=== PATIENT | male | born 1935 | race Caucasian/White ===

== ENCOUNTER → 2016-05-12 | Outpatient (CLI) | payer OTHER ==
[2016-05-12 12:21] LABS: BASO % 0.2 %; BASO ABS # 0.02 K/uL (0-0.2); COMPLETE YES; EOS % 2.5 %; HEMATOCRIT 39.5 % (42-52); IG% 0.1 %; LYMPH % 16.7 %; MEAN CELL VOLUME 94.5 fL (80-100); MEAN CORPUSCULAR HEMOGLOBIN 32.3 pg (25-34); MEAN CORPUSCULAR HGB CONC 34.2 g/dl (32-36); MEAN PLATELET VOLUME 10.2 fL (7.4-10.4); MONO % 6.5 %; PLATELET COUNT 239 K/uL (130-400); RED BLOOD COUNT 4.18 M/uL (4.7-6.1)
[2016-05-12 12:30] LABS: ALT/SGPT 27 U/L (12-78); BLOOD UREA NITROGEN 20 mg/dl (7-18); BUN/CREATININE RATIO 16.3 (10-20); CALCIUM 9.2 mg/dl (8.5-10.1); CARBON DIOXIDE 28 mmol/L (21-32); CHLORIDE 105 mmol/L (98-107); CHOLESTEROL 216 mg/dl (0-200); GLUCOSE 98 mg/dl (70-99); POTASSIUM 4.1 mmol/L (3.5-5.1); SODIUM 142 mmol/L (136-145)
[2016-05-12 12:37] LABS: ALB/GLOB RATIO 1.3 (0.9-2); ALKALINE PHOSPHATASE 93 U/L (45-117); AST/SGOT 25 U/L (15-37); CHOLESTEROL/HDL RATIO 3.3; HDL CHOLESTEROL 66 mg/dl; LDL CHOLESTEROL CALCULATED 139 mg/dl; PROSTATE SPECIFIC ANTIGEN 0.584 ng/ml (0.000-4.000); TRIGLYCERIDES 55 mg/dl (0-150); VERY LOW DENSITY LIPOPROT CALC 11 mg/dl
[2016-05-12 13:03] LABS: ESTIMATED AVERAGE GLUCOSE 120 mg/dl; HA1C FLAG Normal (Normal)
== END | disposition home or self-care (01) ==
LOC: C.LABBFT 10:52
PROVIDERS: ATTEND Internal Medicine
DX: E78.5 Hyperlipidemia, unspecified (principal); R73.01 Impaired fasting glucose; Z12.5 Encounter for screening for malignant neoplasm of prostate

== ENCOUNTER → 2017-07-20 | Outpatient (CLI) | payer OTHER ==
[2017-07-20 12:09] LABS: BASO % 0.5 %; BASO ABS # 0.03 K/uL (0-0.2); EOS % 4.7 %; HEMATOCRIT 38.4 % (42-52); LYMPH % 22.5 %; LYMPH ABS # 1.44 K/uL (1.2-3.4); MEAN CELL VOLUME 96.5 fL (80-100); MEAN CORPUSCULAR HEMOGLOBIN 32.7 pg (25-34); MEAN CORPUSCULAR HGB CONC 33.9 g/dl (32-36); MEAN PLATELET VOLUME 10.4 fL (7.4-10.4); MONO % 9.4 %; NEUT % 62.9 %; NEUT ABS # 4.04 K/uL (1.4-6.5); PLATELET COUNT 226 K/uL (130-400); RED CELL DISTRIBUTION WIDTH SD 45.4 fL (36.4-46.3); WHITE BLOOD COUNT 6.41 K/uL (4.8-10.8)
[2017-07-20 12:19] LABS: HEMOGLOBIN A1C 5.8 % (4.5-5.6)
[2017-07-20 12:42] LABS: ALBUMIN 3.8 gm/dl (3.4-5.0); ALT/SGPT 24 U/L (12-78); AST/SGOT 20 U/L (15-37); BLOOD UREA NITROGEN 21 mg/dl (7-18); CALCIUM 8.9 mg/dl (8.5-10.1); CARBON DIOXIDE 26 mmol/L (21-32); CREATININE 1.26 mg/dl (0.60-1.40); GLUCOSE 100 mg/dl (70-99); POTASSIUM 4.7 mmol/L (3.5-5.1); SODIUM 138 mmol/L (136-145)
[2017-07-20 12:47] LABS: ALKALINE PHOSPHATASE 89 U/L (45-117); CHOLESTEROL 180 mg/dl (0-200); LDL CHOLESTEROL CALCULATED 107 mg/dl; TOTAL PROTEIN 7.2 gm/dl (6.4-8.2)
== END | disposition home or self-care (01) ==
LOC: C.LABBFT 09:29
PROVIDERS: ATTEND Internal Medicine
DX: R73.01 Impaired fasting glucose (principal); Z12.5 Encounter for screening for malignant neoplasm of prostate; E78.5 Hyperlipidemia, unspecified; I65.29 Occlusion and stenosis of unspecified carotid artery

== ENCOUNTER 2021-04-05 08:35 | Observation (INO) ==
--- NOTE | 2021-04-05 08:43 | Emergency Department Note ---
Impression & Plan Atrial fibrillation with rapid ventricular response, Anemia ED Provider Note NAME: LUDA DANIELS AGE: 85 SEX: M : 1935 ARRIVES VIA: Ambulance INFORMANT: Patient, ED PROVIDER(S): Thomas Dockery MD Chief Complaint: Irregular heartbeat, outpatient referral HPI: The patient was over the surgical center this morning for a likely cataract replacement procedure when the patient was noted to have a preoperative EKG that showed A. fib. Patient states he has no chest pain or shortness of breath. Patient denies any alcohol tobacco or drug use. No prior history of any heart or lung disease. Patient is not vaccinated for Covid or flu. Patient denies any chest pain shortness of breath or lower extremity swelling. Patient denies any abdominal pain nausea vomiting. Patient has any fevers or chills back pain or chest pain. Patient has had no prior history of irregular heartbeat. Patient denies any palpitations. No history of thyroid disease. ROS: See HPI for pertinent positives and negatives. A total of 10 systems were reviewed and otherwise negative. Past medical history: See below Surgical history: See below Social history: See below Physical Exam: GENERAL: NAD, wearing glasses, wearing a mask, non-toxic. EYE EXAM: Normal conjunctiva. Left greater than right anisocoria. NECK: Supple, no nuchal rigidity, no adenopathy, non-tender. No signs of meningismus. LUNGS: Clear to auscultation. Normal chest wall mechanics. HEART: Tachycardic, irregularly irregular, no MRG. ABDOMEN: Abdomen soft, non-tender, normo-active bowel sounds, no masses, no rebound or guarding. BACK: No CVA TTP. SKIN: No rashes and no bruising. UPPER EXTREMITIES: Upper extremities are grossly normal. LOWER EXTREMITIES: Grossly normal, no edema. NEURO EXAM: A&O x3, cranial nerves II-XII grossly intact, normal speech, moves all 4 extremities on command w/o issue. Differential diagnoses: Premature contractions, electrolyte abnormality, cardiac dysrhythmia, thyroid dysfunction, pulmonary embolism, infection, gastrointestinal, as well as other pathologies. Course: Patient was seen and evaluated the bedside. Full history physical exam was performed. EKG interpreted by me Likely A. fib with RVR, ventricular rate 169, left bundle branch block, left axis deviation, no prior EKGs for comparison. Imaging Studies: See Below Cardiac monitoring: An order was placed for continuous cardiac monitoring. The monitor shows a rate of 152 with irregular irregular rhythm. MDM: Patient did present due to concern for A. fib with RVR. Patient did have blood work completed and was given Cardizem and IV fluids. Patient is a normal white count with mild anemia at 13 and normal platelet count. Kidney function with mild elevation in BUN but normal creatinine. LFTs troponin electrolytes and TSH relatively unremarkable. Covid negative. Given the patient's new onset A. fib I did speak with the on-call hospitalist Dr. York and the patient was admitted to the medicine service. Patient did have slightly softer blood pressure after initial Cardizem dose additional IV fluids were ordered. Anticoagulation deferred to the inpatient team as Dr. York stated she may to start the patient on a DOAC. Critical Care: I have personally spent 42 minutes of critical care time in direct management of this patient. This includes bedside care, interpretation of diagnostic studies, and testing, discussion with consultants, patient, and family members, and other require inpatient management activities. This 42 minutes is in excess of all separately billable procedures. Past Med/Surg History Medical History (Updated 04/05/21 @ 15:01 by Thomas Dockery MD) Anemia Carotid artery stenosis Left ICA 50-69%, right ICA 1-49% on doppler December 2009 Dyslipidemia no meds Hiatal hernia LBBB (left bundle branch block) Prediabetes no meds Surgical History History of colonoscopy History of inguinal hernia repair History of tooth extraction History of tympanoplasty Family History Sister Cancer Hearing loss Father Hearing loss Brother Prostate cancer Denies family history of Ovarian cancer Myocardial infarction Breast cancer Colorectal cancer Social History (Updated 04/05/21 @ 11:24 by Italia York MD) Smoking Status: Former smoker Tobacco Type: Cigarettes, Pipe and Cigars Age Started Using Tobacco: 18; Age Quit Using Tobacco: 30; packs per day: 0.5; Number of Years Since Quit: 50; Second Hand Exposure: No; Hx Alcohol Use: No Hx Substance Use: No Preferred Language: [place] Communication Ability: Effective Visual Impairment: Limited Hearing Ability: Normal Route Aide Required: No Beliefs That Will Affect Care: None marital status: Current Living Situation: Spouse current occupational status: retired current occupation: used to work at [employer] Feels Safe at Home: Yes Childhood Exposure to Second-Hand Smoke: No caffeine: Yes (tea/coffee) during the past year weight has: remained stable Dental Care, Regularly: No Physical Activity Frequency: Does not Exercise Seatbelt Use: always Sunscreen Use: No Assistive Devices: Glasses Allergies Allergies Allergy/AdvReac Type Severity Reaction Status Date / Time No Known Drug Allergies Allergy Uncoded 04/05/21 07:08 Home Meds Home Medications Medication Instructions Recorded Confirmed aspirin 81 mg tablet,delayed 81 mg PO QAM tab 07/25/19 04/05/21 release Results & Data (ED) Vital Signs Vital Signs - 24 hr 04/05/21 08:34 04/05/21 08:43 04/05/21 08:47 Temperature 36.8 C Temperature Source Oral Pulse Rate 161 H 160 H Pulse Rate from SpO2 Sensor 146 H Pulse Rhythm Irregular Pulse Strength Normal Respiratory Rate 20 19 Respiratory Effort / Characteristics Non-Labored Respiratory Depth Normal Respiratory Pattern Regular Blood Pressure 152/113 H Blood Pressure Mean 126 Pulse Oximetry 97 98 97 Oxygen Delivery Method Room Air Sepsis Recent Fever Within 48 Hours No Sepsis New/Unexplained Change in Mental Status No Sepsis Action Taken by Nursing No Action Required 04/05/21 08:50 04/05/21 09:00 04/05/21 09:10 Temperature Temperature Source Pulse Rate 160 H 163 H 132 H Pulse Rate from SpO2 Sensor 159 H 141 H 109 H Pulse Rhythm Pulse Strength Respiratory Rate 29 H 24 21 Respiratory Effort / Characteristics Respiratory Depth Respiratory Pattern Blood Pressure Blood Pressure Mean Pulse Oximetry 97 98 95 Oxygen Delivery Method Sepsis Recent Fever Within 48 Hours Sepsis New/Unexplained Change in Mental Status Sepsis Action Taken by Nursing 04/05/21 09:20 04/05/21 09:30 04/05/21 09:40 Temperature Temperature Source Pulse Rate 109 H 123 H 135 H Pulse Rate from SpO2 Sensor 90 102 H 133 H Pulse Rhythm Pulse Strength Respiratory Rate 20 17 21 Respiratory Effort / Characteristics Respiratory Depth Respiratory Pattern Blood Pressure 108/92 Blood Pressure Mean 97 Pulse Oximetry 95 95 97 Oxygen Delivery Method Sepsis Recent Fever Within 48 Hours Sepsis New/Unexplained Change in Mental Status Sepsis Action Taken by Nursing 04/05/21 09:50 04/05/21 10:00 04/05/21 10:10 Temperature Temperature Source Pulse Rate 146 H 139 H 169 H Pulse Rate from SpO2 Sensor 142 H 89 153 H Pulse Rhythm Pulse Strength Respiratory Rate 27 H 14 20 Respiratory Effort / Characteristics Respiratory Depth Respiratory Pattern Blood Pressure Blood Pressure Mean Pulse Oximetry 97 96 97 Oxygen Delivery Method Sepsis Recent Fever Within 48 Hours Sepsis New/Unexplained Change in Mental Status Sepsis Action Taken by Nursing 04/05/21 10:20 04/05/21 10:30 04/05/21 10:40 Temperature Temperature Source Pulse Rate 147 H 134 H 141 H Pulse Rate from SpO2 Sensor 134 H 129 H 135 H Pulse Rhythm Pulse Strength Respiratory Rate 27 H 27 H 22 Respiratory Effort / Characteristics Respiratory Depth Respiratory Pattern Blood Pressure Blood Pressure Mean Pulse Oximetry 98 93 97 Oxygen Delivery Method Sepsis Recent Fever Within 48 Hours Sepsis New/Unexplained Change in Mental Status Sepsis Action Taken by Nursing 04/05/21 10:50 04/05/21 11:00 04/05/21 11:10 Temperature Temperature Source Pulse Rate 157 H 153 H 154 H Pulse Rate from SpO2 Sensor 158 H 145 H 183 H Pulse Rhythm Pulse Strength Respiratory Rate 22 26 H 25 H Respiratory Effort / Characteristics Respiratory Depth Respiratory Pattern Blood Pressure 130/84 Blood Pressure Mean 99 Pulse Oximetry 98 97 96 Oxygen Delivery Method Sepsis Recent Fever Within 48 Hours Sepsis New/Unexplained Change in Mental Status Sepsis Action Taken by Nursing 04/05/21 11:20 04/05/21 11:30 04/05/21 11:40 Temperature Temperature Source Pulse Rate 136 H 147 H 144 H Pulse Rate from SpO2 Sensor 148 H 115 H 137 H Pulse Rhythm Pulse Strength Respiratory Rate 30 H 24 21 Respiratory Effort / Characteristics Respiratory Depth Respiratory Pattern Blood Pressure Blood Pressure Mean Pulse Oximetry 97 95 97 Oxygen Delivery Method Sepsis Recent Fever Within 48 Hours Sepsis New/Unexplained Change in Mental Status Sepsis Action Taken by Nursing 04/05/21 11:50 04/05/21 12:00 04/05/21 12:10 Temperature Temperature Source Pulse Rate 152 H 140 H 176 H Pulse Rate from SpO2 Sensor 155 H 93 H 171 H Pulse Rhythm Pulse Strength Respiratory Rate 25 H 22 25 H Respiratory Effort / Characteristics Respiratory Depth Respiratory Pattern Blood Pressure Blood Pressure Mean Pulse Oximetry 97 97 98 Oxygen Delivery Method Sepsis Recent Fever Within 48 Hours Sepsis New/Unexplained Change in Mental Status Sepsis Action Taken by Nursing 04/05/21 12:20 04/05/21 12:30 04/05/21 12:40 Temperature Temperature Source Pulse Rate 119 H 136 H 71 Pulse Rate from SpO2 Sensor 68 Pulse Rhythm Pulse Strength Respiratory Rate 20 26 H 25 H Respiratory Effort / Characteristics Respiratory Depth Respiratory Pattern Blood Pressure Blood Pressure Mean Pulse Oximetry 96 Oxygen Delivery Method Sepsis Recent Fever Within 48 Hours Sepsis New/Unexplained Change in Mental Status Sepsis Action Taken by Nursing 04/05/21 12:50 04/05/21 13:00 04/05/21 13:10 Temperature Temperature Source Pulse Rate 70 65 69 Pulse Rate from SpO2 Sensor 64 65 70 Pulse Rhythm Pulse Strength Respiratory Rate 21 21 27 H Respiratory Effort / Characteristics Respiratory Depth Respiratory Pattern Blood Pressure 118/64 Blood Pressure Mean 82 Pulse Oximetry 97 96 96 Oxygen Delivery Method Sepsis Recent Fever Within 48 Hours Sepsis New/Unexplained Change in Mental Status Sepsis Action Taken by Nursing 04/05/21 13:20 04/05/21 13:30 04/05/21 13:40 Temperature Temperature Source Pulse Rate 72 68 72 Pulse Rate from SpO2 Sensor 67 68 64 Pulse Rhythm Pulse Strength Respiratory Rate 24 21 27 H Respiratory Effort / Characteristics Respiratory Depth Respiratory Pattern Blood Pressure 129/64 Blood Pressure Mean 85 Pulse Oximetry 95 96 96 Oxygen Delivery Method Sepsis Recent Fever Within 48 Hours Sepsis New/Unexplained Change in Mental Status Sepsis Action Taken by Nursing 04/05/21 13:50 04/05/21 14:00 04/05/21 14:10 Temperature Temperature Source Pulse Rate 68 66 68 Pulse Rate from SpO2 Sensor 67 66 68 Pulse Rhythm Pulse Strength Respiratory Rate 23 19 24 Respiratory Effort / Characteristics Respiratory Depth Respiratory Pattern Blood Pressure 131/66 Blood Pressure Mean 87 Pulse Oximetry 96 96 97 Oxygen Delivery Method Sepsis Recent Fever Within 48 Hours Sepsis New/Unexplained Change in Mental Status Sepsis Action Taken by Nursing 04/05/21 14:20 04/05/21 14:30 04/05/21 14:40 Temperature Temperature Source Pulse Rate 67 67 68 Pulse Rate from SpO2 Sensor 67 66 68 Pulse Rhythm Pulse Strength Respiratory Rate 27 H 17 29 H Respiratory Effort / Characteristics Respiratory Depth Respiratory Pattern Blood Pressure 143/64 H Blood Pressure Mean 90 Pulse Oximetry 97 97 98 Oxygen Delivery Method Sepsis Recent Fever Within 48 Hours Sepsis New/Unexplained Change in Mental Status Sepsis Action Taken by Nursing 04/05/21 14:50 04/05/21 14:57 Temperature 36.7 C Temperature Source Oral Pulse Rate 66 66 Pulse Rate from SpO2 Sensor 65 Pulse Rhythm Pulse Strength Respiratory Rate 31 H 20 Respiratory Effort / Characteristics Respiratory Depth Respiratory Pattern Blood Pressure 143/64 H Blood Pressure Mean Pulse Oximetry 97 98 Oxygen Delivery Method Room Air Sepsis Recent Fever Within 48 Hours Sepsis New/Unexplained Change in Mental Status Sepsis Action Taken by Retirement Medications Current Medication List: was personally reviewed by me Laboratory Data Attestation: I reviewed the patient's lab results. Result diagrams: 04/05/21 08:56 04/05/21 08:56 Lab Results 04/05/21 04/05/21 04/05/21 Range/Units 08:56 08:56 08:56 WBC 7.17 (4.8-10.8) K/uL RBC 4.04 L (4.7-6.1) M/uL Hgb 13.0 L (14.0-18.0) g/dL Hct 39.0 L (42-52) % MCV 96.5 (80-100) fL MCH 32.2 (25-34) pg MCHC 33.3 (32-36) g/dL RDW Std Deviation 49.7 H (36.4-46.3) fL RDW Coeff of [place] 14.1 (11.5-14.5) % Plt Count 241 (130-400) K/uL MPV 10.0 (7.4-10.4) fL Immature Gran % (Auto) 0.0 % Neut % (Auto) 69.0 % Lymph % (Auto) 15.6 % [place] % (Auto) 8.8 % Eos % (Auto) 6.0 % Baso % (Auto) 0.6 % Neut # (Auto) 4.95 (1.4-6.5) K/uL Lymph # (Auto) 1.12 L (1.2-3.4) K/uL [place] # (Auto) 0.63 H (0.11-0.59) K/uL Eos # (Auto) 0.43 (0-0.5) K/uL Baso # (Auto) 0.04 (0-0.2) K/uL Immature Gran # (Auto) 0.00 (0.00-0.02) K/uL PT 10.3 (9.0-12.0) Seconds INR 1.0 (0.9-1.1) APTT 26.5 (21.0-31.0) Seconds PTT Ratio 1.0 Sodium 140 (136-145) mmol/L Potassium 4.1 (3.5-5.1) mmol/L Chloride 107 (98-107) mmol/L Carbon Dioxide 22 (21-32) mmol/L Anion Gap 10.0 (3-11) BUN 23 H (7-18) mg/dl Creatinine 1.36 (0.6-1.4) mg/dl Est Cr Clr Drug Dosing Not Reportable Est GFR ( Amer) 54.6 ml/min Est GFR (Non-Af Amer) 47.1 ml/min BUN/Creatinine Ratio 16.9 (10-20) Glucose 117 H (70-99) mg/dl Calcium 9.4 (8.5-10.1) mg/dl Phosphorus (2.5-4.9) mg/dl Magnesium (1.8-2.4) mg/dl Total Bilirubin 0.8 (0.2-1) mg/dl AST 18 (15-37) U/L ALT 22 (12-78) U/L Alkaline Phosphatase 82 (45-117) U/L Troponin I < 0.015 (0-0.045) ng/ml Total Protein 7.5 (6.4-8.2) gm/dl Albumin 3.7 (3.4-5.0) gm/dl Globulin 3.8 (2.5-4.0) gm/dl Albumin/Globulin Ratio 1.0 (0.9-2) Lipase 70 L (73-393) U/L TSH (0.300-4.500) uIu/ml SARS-CoV-2, RNA, NAAT (NEGATIVE) SARS-CoV-2 IgG & IgM Ab (Negative) 04/05/21 04/05/21 04/05/21 Range/Units 08:56 08:56 08:56 WBC (4.8-10.8) K/uL RBC (4.7-6.1) M/uL Hgb (14.0-18.0) g/dL Hct (42-52) % MCV (80-100) fL MCH (25-34) pg MCHC (32-36) g/dL RDW Std Deviation (36.4-46.3) fL RDW Coeff of [place] (11.5-14.5) % Plt Count (130-400) K/uL MPV (7.4-10.4) fL Immature Gran % (Auto) % Neut % (Auto) % Lymph % (Auto) % [place] % (Auto) % Eos % (Auto) % Baso % (Auto) % Neut # (Auto) (1.4-6.5) K/uL Lymph # (Auto) (1.2-3.4) K/uL [place] # (Auto) (0.11-0.59) K/uL Eos # (Auto) (0-0.5) K/uL Baso # (Auto) (0-0.2) K/uL Immature Gran # (Auto) (0.00-0.02) K/uL PT (9.0-12.0) Seconds INR (0.9-1.1) APTT (21.0-31.0) Seconds PTT Ratio Sodium (136-145) mmol/L Potassium (3.5-5.1) mmol/L Chloride (98-107) mmol/L Carbon Dioxide (21-32) mmol/L Anion Gap (3-11) BUN (7-18) mg/dl Creatinine (0.6-1.4) mg/dl Est Cr Clr Drug Dosing Est GFR ( Amer) ml/min Est GFR (Non-Af Amer) ml/min BUN/Creatinine Ratio (10-20) Glucose (70-99) mg/dl Calcium (8.5-10.1) mg/dl Phosphorus 3.1 (2.5-4.9) mg/dl Magnesium 2.3 (1.8-2.4) mg/dl Total Bilirubin (0.2-1) mg/dl AST (15-37) U/L ALT (12-78) U/L Alkaline Phosphatase (45-117) U/L Troponin I (0-0.045) ng/ml Total Protein (6.4-8.2) gm/dl Albumin (3.4-5.0) gm/dl Globulin (2.5-4.0) gm/dl Albumin/Globulin Ratio (0.9-2) Lipase (73-393) U/L TSH 3.250 (0.300-4.500) uIu/ml SARS-CoV-2, RNA, NAAT (NEGATIVE) SARS-CoV-2 IgG & IgM Ab Positive A (Negative) 04/05/21 Range/Units 09:09 WBC (4.8-10.8) K/uL RBC (4.7-6.1) M/uL Hgb (14.0-18.0) g/dL Hct (42-52) % MCV (80-100) fL MCH (25-34) pg MCHC (32-36) g/dL RDW Std Deviation (36.4-46.3) fL RDW Coeff of [place] (11.5-14.5) % Plt Count (130-400) K/uL MPV (7.4-10.4) fL Immature Gran % (Auto) % Neut % (Auto) % Lymph % (Auto) % [place] % (Auto) % Eos % (Auto) % Baso % (Auto) % Neut # (Auto) (1.4-6.5) K/uL Lymph # (Auto) (1.2-3.4) K/uL [place] # (Auto) (0.11-0.59) K/uL Eos # (Auto) (0-0.5) K/uL Baso # (Auto) (0-0.2) K/uL Immature Gran # (Auto) (0.00-0.02) K/uL PT (9.0-12.0) Seconds INR (0.9-1.1) APTT (21.0-31.0) Seconds PTT Ratio Sodium (136-145) mmol/L Potassium (3.5-5.1) mmol/L Chloride (98-107) mmol/L Carbon Dioxide (21-32) mmol/L Anion Gap (3-11) BUN (7-18) mg/dl Creatinine (0.6-1.4) mg/dl Est Cr Clr Drug Dosing Est GFR ( Amer) ml/min Est GFR (Non-Af Amer) ml/min BUN/Creatinine Ratio (10-20) Glucose (70-99) mg/dl Calcium (8.5-10.1) mg/dl Phosphorus (2.5-4.9) mg/dl Magnesium (1.8-2.4) mg/dl Total Bilirubin (0.2-1) mg/dl AST (15-37) U/L ALT (12-78) U/L Alkaline Phosphatase (45-117) U/L Troponin I (0-0.045) ng/ml Total Protein (6.4-8.2) gm/dl Albumin (3.4-5.0) gm/dl Globulin (2.5-4.0) gm/dl Albumin/Globulin Ratio (0.9-2) Lipase (73-393) U/L TSH (0.300-4.500) uIu/ml SARS-CoV-2, RNA, NAAT NEGATIVE (NEGATIVE) SARS-CoV-2 IgG & IgM Ab (Negative) Administered Medications Discontinued Medications Apixaban (Apixaban 5 Mg Tablet) 5 mg PO ONE ONE Stop: 04/05/21 11:20 Last Admin: 04/05/21 12:12 Dose: 5 mg Documented by: [id number] Diltiazem HCl (Diltiazem Hcl 5 Mg/Ml 5 Ml Vial) 18 mg IV NOW STA Stop: 04/05/21 08:50 Last Admin: 04/05/21 09:06 Dose: 18 mg Documented by: [id number] Cosigned by: [id number] Diltiazem HCl (Diltiazem Hcl 5 Mg/Ml 5 Ml Vial) 10 mg IV NOW STA Stop: 04/05/21 11:20 Last Admin: 04/05/21 12:12 Dose: 10 mg Documented by: [id number] Cosigned by: [id number] Sodium Chloride (Nss) 500 mls @ 999 mls/hr IV .Q31M STA Stop: 04/05/21 09:17 Last Admin: 04/05/21 09:06 Dose: 999 mls/hr Documented by: [id number] Sodium Chloride (Nss) 500 mls @ 999 mls/hr IV .Q31M ONE Stop: 04/05/21 10:21 Last Admin: 04/05/21 10:11 Dose: 999 mls/hr Documented by: [id number] Imaging Data Radiologist's Impression: Chest X-Ray 04/05/21 08:47 XR chest 1V portable CLINICAL HISTORY: Chest Pain. COMPARISON STUDY: No previous studies for comparison. TECHNIQUE: 1 view of the chest FINDINGS: Single frontal view of the chest demonstrates the heart size to be at the upper limits of normal to mildly enlarged. There is hyperinflation of the lungs with attenuation of the pulmonary vasculature peripherally characteristic of underlying chronic obstructive pulmonary disease. Mild prominence of interstitial markings is also present which appears chronic in nature. The lungs are clear of alveolar opacities. There is no evidence for pleural effusion. There is no evidence for vascular congestion. There is no acute osseous pathology. IMPRESSION: No acute cardiopulmonary disease. Evidence for underlying COPD and mild interstitial lung disease. ACT 112: Negative or not required by law. Electronically signed by: Avtar David M.D. 04/05/2021 9:11 AM Discharge Plan Visit Data Chief Complaint: Cardiac Assessment ED Provider: Thomas Dockery Discharge Problem: Atrial fibrillation with rapid ventricular response, Anemia Patient Disposition: Admitted As Inpatient Discharge Instructions Interventions: ED Discharge Assessment Last Done: 04/05/21 14:57 Forms Stand Alone Forms: [facility] [employer] Prescriptions Prescriptions: No Action aspirin 81 mg tablet,delayed release (DR/EC) 81 mg PO QAM RF: 0 Referrals Referrals: Blas Beck III, MD [Primary Care Provider] -
[2021-04-05] MEDS ORDERED: SODIUM CHLORIDE 0.9% 500 ML IV STA (08:47)
[2021-04-05] MEDS ORDERED: dilTIAZem HCl 5 MG/ML 5 ML VIAL IV STA ×2 (08:49→11:19)
[2021-04-05 09:09] LABS: Basophils # (auto) 0.04 K/uL (0-0.2); Basophils % (auto) 0.6 %; Eosinophils # (auto) 0.43 K/uL (0-0.5); Lymphocytes # (auto) 1.12 K/uL (1.2-3.4); Lymphocytes % (auto) 15.6 %; Mean Corpuscular Hemoglobin 32.2 pg (25-34); Mean Corpuscular Hgb Conc 33.3 g/dL (32-36); Mean Corpuscular Volume 96.5 fL (80-100); Monocytes # (auto) 0.63 K/uL (0.11-0.59); Monocytes % (auto) 8.8 %; Neutrophils # (auto) 4.95 K/uL (1.4-6.5); Platelet Count 241 K/uL (130-400); RDW Coefficient of Variation 14.1 % (11.5-14.5); RDW Standard Deviation 49.7 fL (36.4-46.3); Red Blood Count 4.04 M/uL (4.7-6.1); White Blood Count 7.17 K/uL (4.8-10.8)
--- NOTE | 2021-04-05 09:12 | XRay Report ---
XR chest 1V portable CLINICAL HISTORY: Chest Pain. COMPARISON STUDY: No previous studies for comparison. TECHNIQUE: 1 view of the chest FINDINGS: Single frontal view of the chest demonstrates the heart size to be at the upper limits of normal to m ildly enlarged. There is hyperinflation of the lungs with attenuation of the pulmonary vasculature pe ripherally characteristic of underlying chronic obstructive pulmonary disease. Mild prominence of int erstitial markings is also present which appears chronic in nature. The lungs are clear of alveolar o pacities. There is no evidence for pleural effusion. There is no evidence for vascular congestion. Th ere is no acute osseous pathology. IMPRESSION: No acute cardiopulmonary disease. Evidence for underlying COPD and mild interstitial lung disease. ACT 112: Negative or not required by law. Electronically signed by: Avtar David M.D. 04/05/2021 9:11 AM
[2021-04-05 09:21] LABS: Partial Thromboplastin Time 26.5 Seconds (21.0-31.0); Prothrombin Time 10.3 Seconds (9.0-12.0)
[2021-04-05 09:26] LABS: Alanine Aminotransferase 22 U/L (12-78); Albumin Level 3.7 gm/dl (3.4-5.0); Aspartate Aminotransferase 18 U/L (15-37); BUN Creatinine Ratio 16.9 (10-20); Blood Urea Nitrogen 23 mg/dl (7-18); Calcium 9.4 mg/dl (8.5-10.1); Carbon Dioxide 22 mmol/L (21-32); Chloride 107 mmol/L (98-107); Est GFR (African American) 54.6 ml/min; Est GFR (Non-African American) 47.1 ml/min; Glucose 117 mg/dl (70-99); Lipase 70 U/L (73-393); Potassium 4.1 mmol/L (3.5-5.1); Sodium 140 mmol/L (136-145)
[2021-04-05 09:30] LABS: Alkaline Phosphatase 82 U/L (45-117); Bilirubin,Total 0.8 mg/dl (0.2-1); Globulin 3.8 gm/dl (2.5-4.0); Total Protein 7.5 gm/dl (6.4-8.2); Troponin I < 0.015 ng/ml (0-0.045)
[2021-04-05] MEDS ORDERED: SODIUM CHLORIDE 0.9% 500 ML IV ONE (09:51)
--- NOTE | 2021-04-05 10:22 | History & Physical Report ---
Date of Service April 05, 2021 Assessment & Plan (1) Rapid atrial fibrillation: Plan: With new onset rapid atrial fibrillation which is asymptomatic With new LBBB. Troponin negative and no chest pain -Admit to PCU on telemetry monitoring on observation -Check echocardiogram -Consult cardiology-recommends rate control strategy for now -Start Eliquis 5 mg p.o. twice daily for stroke risk reduction-was counseled on this and is agreeable, his risk for bleeding is low-does have a mild anemia and CBC should be monitored closely-last colonoscopy over 10 years ago -Continue home aspirin which he was on for carotid artery stenosis -Check TSH -Checking SARS-CoV-2 antibodies to see if he did indeed have a Covid infection in the last 1 to 2 months-perhaps if he has a cardiomyopathy-this could be a precursor? -Follow BMP and magnesium and keep electrolytes replete -Start diltiazem drip and titrate up for rate control -Await echocardiogram results and if no cardiomyopathy, could start p.o. diltiazem, otherwise start metoprolol by mouth (2) LBBB (left bundle branch block): Plan: As above Check echocardiogram (3) Prediabetes: Plan: Check hemoglobin A1c in the morning No need for Accu-Cheks or supplemental insulin (4) Dyslipidemia: Plan: Has been told he had dyslipidemia in the past but is not on treatment Follow-up with PCP (5) Asymptomatic carotid artery stenosis without infarction: Plan: Continue aspirin Not on statin-defer to PCP (6) Anemia: Plan: Mild at 13 for hemoglobin, normocytic, chronic for many years No evidence of bleeding from anywhere that he knows of -Check iron studies, B12, folate, TSH Plan: DVT prophylaxis-starting Eliquis Disposition-bring in on observation to PCU DNR/DNI as per discussion with patient with his at the bedside History of Present Illness Chief Complaint: New onset rapid atrial fibrillation Primary Care Provider: Blas Beck MD This patient is an 85-year-old male with a history of prehypertension, prediabetes, dyslipidemia, normocytic anemia, and asymptomatic carotid artery stenosis, who presents to the ER after being found to be in rapid atrial fibrillation preoperatively for cataract surgery this morning. He is completely asymptomatic-he denies any chest pains or shortness of breath, no nausea or vomiting, no abdominal pains, no numbness or tingling or weakness, no lightheadedness. He is quite active in his daily life. He does report that about 1 to 2 months ago, he lost his taste and smell and had shortness of breath and significant fatigue for about 1 to 2 weeks, but was never tested for Covid. He is not vaccinated against Covid. He recovered from that illness and has been doing well ever since. He has never noted his heart rate to be high but has been told that his blood pressure has been borderline high in the past but was not prescribed antihypertensives. He quit smoking 50 years ago and does not drink any alcohol. In the ER, he was found to have a new LBBB, and heart rates were in the 150s- 160s in atrial fibrillation. He was given a bolus of IV Cardizem with marginal improvement but after that wore off, his heart rates were back in the 140s-150s when I saw him. Electrolytes were normal, TSH was not yet checked, Covid-19 test was negative. His vital signs other than the tachycardia were normal. He is mildly anemic which is chronic. Troponin was negative. Chest x-ray showed evidence for underlying COPD and mild interstitial lung disease but nothing acute. He will be admitted for rapid atrial fibrillation and new onset LBBB for further evaluation. Allergies Allergy/AdvReac Type Severity Reaction Status Date / Time No Known Drug Allergies Allergy Uncoded 04/05/21 07:08 Home Medications Medication Instructions Recorded Confirmed Type aspirin 81 mg tablet,delayed 81 mg PO QAM tab 07/25/19 04/05/21 History release Past Med/Surg History Medical History (Updated 04/05/21 @ 10:22 by Italia York MD) Anemia Carotid artery stenosis Left ICA 50-69%, right ICA 1-49% on doppler December 2009 Dyslipidemia no meds Hiatal hernia LBBB (left bundle branch block) Prediabetes no meds Surgical History History of colonoscopy History of inguinal hernia repair History of tooth extraction History of tympanoplasty Family History Sister Cancer Hearing loss Father Hearing loss Brother Prostate cancer Denies family history of Ovarian cancer Myocardial infarction Breast cancer Colorectal cancer Social History (Updated 04/05/21 @ 11:24 by Italia York MD) Smoking Status: Former smoker Tobacco Type: Cigarettes, Pipe and Cigars Age Started Using Tobacco: 18; Age Quit Using Tobacco: 30; packs per day: 0.5; Number of Years Since Quit: 50; Second Hand Exposure: No; Hx Alcohol Use: No Hx Substance Use: No Preferred Language: Bermudian Communication Ability: Effective Visual Impairment: Limited Hearing Ability: Normal Case Hardener Required: No Beliefs That Will Affect Care: None marital status: Current Living Situation: Spouse current occupational status: retired current occupation: used to work at [employer] Feels Safe at Home: Yes Childhood Exposure to Second-Hand Smoke: No caffeine: Yes (tea/coffee) during the past year weight has: remained stable Dental Care, Regularly: No Physical Activity Frequency: Does not Exercise Seatbelt Use: always Sunscreen Use: No Assistive Devices: Glasses Review of Systems Review of Systems: All systems reviewed & are unremarkable except as noted in HPI & below Denies any hematemesis, no hematochezia or melena, no hematuria, no history of intracranial hemorrhage or other bleeding issues. No nausea/vomiting/diarrhea, no abdominal pains No fevers or chills or recent illness other than described in the HPI 1 to 2 months ago with possible Covid Physical Exam Constitutional: WD/WN, vitals as above Eyes: Left pupil dilated but slightly reactive-secondary to dilation drops preoperative for cataract surgery Right pupil normal size and reactive Extraocular muscles intact ENMT: external ear and nose normal, oropharynx normal Neck: trachea midline, no thyromegaly Respiratory: normal respiratory effort, lungs clear to auscultation Cardiovascular: Rate/Rhythm: + tachycardic and + irregularly irregular Heart Sounds: no murmur Vessels: dorsalis pedis pulses present; no JVD and no carotid bruit Extremities: no edema Chest (Breasts): Chest: normal inspection of chest Gastrointestinal (Abdomen): normal bowel sounds, soft, nontender, no hepatosplenomegaly Musculoskeletal: Extremities: extremities normal to inspection; no cyanosis and no clubbing Skin: no rashes, warm and dry Neurologic: moves all extremities and awake; no focal motor deficits Psychiatric: A+Ox3, euthymic affect Lymphatic: no lymphedema Results & Data Results & Data ([facility]) Vital Signs (Past 12 Hours) Vital Signs Temp Pulse Resp BP Pulse Ox 04/05/21 09:40 135 H 21 97 04/05/21 09:30 123 H 17 108/92 95 04/05/21 09:20 109 H 20 95 04/05/21 09:10 132 H 21 95 04/05/21 09:00 163 H 24 98 04/05/21 08:50 160 H 29 H 97 04/05/21 08:47 97 04/05/21 08:43 160 H 19 98 04/05/21 08:34 36.8 C 161 H 20 152/113 H 97 Laboratory Results 04/05/21 04/05/21 04/05/21 Range/Units 09:09 08:56 08:56 WBC (4.8-10.8) K/uL RBC (4.7-6.1) M/uL Hgb (14.0-18.0) g/dL Hct (42-52) % MCV (80-100) fL MCH (25-34) pg MCHC (32-36) g/dL RDW Std Deviation (36.4-46.3) fL RDW Coeff of Kehinde (11.5-14.5) % Plt Count (130-400) K/uL MPV (7.4-10.4) fL Immature Gran % (Auto) % Neut % (Auto) % Lymph % (Auto) % [place] % (Auto) % Eos % (Auto) % Baso % (Auto) % Neut # (Auto) (1.4-6.5) K/uL Lymph # (Auto) (1.2-3.4) K/uL [place] # (Auto) (0.11-0.59) K/uL Eos # (Auto) (0-0.5) K/uL Baso # (Auto) (0-0.2) K/uL Immature Gran # (Auto) (0.00-0.02) K/uL PT (9.0-12.0) Seconds INR (0.9-1.1) APTT (21.0-31.0) Seconds PTT Ratio Sodium 140 (136-145) mmol/L Potassium 4.1 (3.5-5.1) mmol/L Chloride 107 (98-107) mmol/L Carbon Dioxide 22 (21-32) mmol/L Anion Gap 10.0 (3-11) BUN 23 H (7-18) mg/dl Creatinine 1.36 (0.6-1.4) mg/dl Est Cr Clr Drug Dosing Not Reportable Est GFR ( Amer) 54.6 ml/min Est GFR (Non-Af Amer) 47.1 ml/min BUN/Creatinine Ratio 16.9 (10-20) Glucose 117 H (70-99) mg/dl Calcium 9.4 (8.5-10.1) mg/dl Phosphorus Pending Magnesium Pending Total Bilirubin 0.8 (0.2-1) mg/dl AST 18 (15-37) U/L ALT 22 (12-78) U/L Alkaline Phosphatase 82 (45-117) U/L Troponin I < 0.015 (0-0.045) ng/ml Total Protein 7.5 (6.4-8.2) gm/dl Albumin 3.7 (3.4-5.0) gm/dl Globulin 3.8 (2.5-4.0) gm/dl Albumin/Globulin Ratio 1.0 (0.9-2) Lipase 70 L (73-393) U/L SARS-CoV-2, RNA, NAAT NEGATIVE (NEGATIVE) 04/05/21 04/05/21 Range/Units 08:56 08:56 WBC 7.17 (4.8-10.8) K/uL RBC 4.04 L (4.7-6.1) M/uL Hgb 13.0 L (14.0-18.0) g/dL Hct 39.0 L (42-52) % MCV 96.5 (80-100) fL MCH 32.2 (25-34) pg MCHC 33.3 (32-36) g/dL RDW Std Deviation 49.7 H (36.4-46.3) fL RDW Coeff of Kehinde 14.1 (11.5-14.5) % Plt Count 241 (130-400) K/uL MPV 10.0 (7.4-10.4) fL Immature Gran % (Auto) 0.0 % Neut % (Auto) 69.0 % Lymph % (Auto) 15.6 % [place] % (Auto) 8.8 % Eos % (Auto) 6.0 % Baso % (Auto) 0.6 % Neut # (Auto) 4.95 (1.4-6.5) K/uL Lymph # (Auto) 1.12 L (1.2-3.4) K/uL [place] # (Auto) 0.63 H (0.11-0.59) K/uL Eos # (Auto) 0.43 (0-0.5) K/uL Baso # (Auto) 0.04 (0-0.2) K/uL Immature Gran # (Auto) 0.00 (0.00-0.02) K/uL PT 10.3 (9.0-12.0) Seconds INR 1.0 (0.9-1.1) APTT 26.5 (21.0-31.0) Seconds PTT Ratio 1.0 Sodium (136-145) mmol/L Potassium (3.5-5.1) mmol/L Chloride (98-107) mmol/L Carbon Dioxide (21-32) mmol/L Anion Gap (3-11) BUN (7-18) mg/dl Creatinine (0.6-1.4) mg/dl Est Cr Clr Drug Dosing Est GFR ( Amer) ml/min Est GFR (Non-Af Amer) ml/min BUN/Creatinine Ratio (10-20) Glucose (70-99) mg/dl Calcium (8.5-10.1) mg/dl Phosphorus Magnesium Total Bilirubin (0.2-1) mg/dl AST (15-37) U/L ALT (12-78) U/L Alkaline Phosphatase (45-117) U/L Troponin I (0-0.045) ng/ml Total Protein (6.4-8.2) gm/dl Albumin (3.4-5.0) gm/dl Globulin (2.5-4.0) gm/dl Albumin/Globulin Ratio (0.9-2) Lipase (73-393) U/L SARS-CoV-2, RNA, NAAT (NEGATIVE) Diagnostic Findings Chest X-Ray 04/05/21 08:47 XR chest 1V portable CLINICAL HISTORY: Chest Pain. COMPARISON STUDY: No previous studies for comparison. TECHNIQUE: 1 view of the chest FINDINGS: Single frontal view of the chest demonstrates the heart size to be at the upper limits of normal to mildly enlarged. There is hyperinflation of the lungs with attenuation of the pulmonary vasculature peripherally characteristic of underlying chronic obstructive pulmonary disease. Mild prominence of interstitial markings is also present which appears chronic in nature. The lungs are clear of alveolar opacities. There is no evidence for pleural effusion. There is no evidence for vascular congestion. There is no acute osseous pathology. IMPRESSION: No acute cardiopulmonary disease. Evidence for underlying COPD and mild interstitial lung disease. ACT 112: Negative or not required by law. Electronically signed by: Avtar David M.D. 04/05/2021 9:11 AM ECG Additional Comments: ECG on 04/05/2021 at 8:39 AM with atrial fibrillation with rate 169, with PVCs or aberrantly conducted beats, LBBB and left axis deviation No previous ECG to compare to prior to today Code Status & VTE Plan Code Status DNR/DNI as per discussion with patient with his at the bedside VTE Prophylaxis Plan VTE Prophylaxis will be ordered: Yes PG Care Time/CCT Total # of Minutes Spent Total Time Spent with Patient: Total time spent is greater than 50% in coordination of care (as documented) at patient's floor/unit and/or counseling patient: Coding Level of Care Code INT OBSERVATION CARE 70M LVL 3 Diagnoses Prediabetes R73.03 Dyslipidemia E78.5 Asymptomatic carotid artery stenosis without infarction I65.29 Anemia D64.9 Rapid atrial fibrillation I48.91 LBBB (left bundle branch block) I44.7
[2021-04-05 10:25] LABS: Magnesium 2.3 mg/dl (1.8-2.4); Phosphorus 3.1 mg/dl (2.5-4.9)
[2021-04-05] MEDS ORDERED: APIXABAN 5 MG TABLET PO ONE (11:19)
[2021-04-05] MEDS ORDERED: STAT IV Infusion **Titration per Protocol STA (11:19)
[2021-04-05 12:27] LABS: CoV2 Total Antibody Positive (Negative)
[2021-04-05] MEDS ORDERED: ACETAMINOPHEN 325 MG TAB PO PRN (12:29)
[2021-04-05] MEDS ORDERED: dilTIAZem HCL 125 MG in DEXTROSE 5% 100 ML IV SCH (12:29)
--- NOTE | 2021-04-05 14:20 | XCELERA ---
[id number]
--- NOTE | 2021-04-05 14:28 | Electrocardiogram Report ---
Test Reason : Blood Pressure : / mmHG Vent. Rate : 169 BPM Atrial Rate : 174 BPM P-R Int : 000 ms QRS Dur : 138 ms QT Int : 292 ms P-R-T Axes : 000 -54 120 degrees QTc Int : 489 ms Poor data quality, interpretation may be adversely affected Atrial fibrillation with rapid ventricular response with premature ventricular or aberrantly conducte d complexes Left axis deviation Left bundle branch block Abnormal ECG When compared with ECG of 05-APR-2021 06:31, (unconfirmed) No significant change was found Confirmed by Deo Simons ([id number]) on 04/05/2021 2:28:10 PM Referred By: Confirmed By:Ezequiel Simons
--- NOTE | 2021-04-05 17:13 | Cardiology Consultation ---
Date of Consultation April 05, 2021 Assessment & Plan (1) Atrial fibrillation with rapid ventricular response: (2) LBBB (left bundle branch block): (3) Cardiomyopathy: (4) Mitral regurgitation: 1. Atrial fibrillation: Unclear duration. The last notation in his record of a normal pulse was in mid February. He certainly could have had the arrhythmia for few weeks. However, the fact that he converted today would suggest a shorter time interval. Unfortunately, he had a rapid ventricular response. Given his absence of symptoms but high ventricular rates than ideal strategy would be rate control. He is relatively low heart rate at baseline. With his cardiomyopathy beta-blockade would be beneficial and I think will begin his treatment with metoprolol succinate. Recurrent episodes of atrial fibrillation and high ventricular rates we could also consider amiodarone in his demographic. He certainly has an elevated risk of stroke based on his chads Vasc score. He was administered apixaban earlier today. He appears to be a good candidate for apixaban 5 mg b.i.d. moving forward. 2. Cardiomyopathy: He was noted to have significantly reduced LV systolic function on echocardiography. Possibly related to the high ventricular rates over an extended period. He also has a left bundle branch block which is associated with both coronary disease and cardiomyopathy. Whether the arrhythmia and high ventricular rates are a cause is unclear. However, think adding beta-blockade and maintaining good rate control or in the next few weeks will help us determine the cause. He does not endorse symptoms of exertional chest pain suggestive of coronary disease. I suspect if he had coronary disease to the degree it would cause severe LV dysfunction he would also have some symptoms. Depending on his blood pressure response to beta-blockade the addition of Justin inhibition would also be indicated. Overall he appears to be well compensated. The lung examination and chest x-ray were normal. 3. Left bundle branch block: Unknown duration. I cannot find an old EKG in his record. This is associated with coronary disease and cardiomyopathy. Also possibly just age related. 4. Mitral regurgitation: Mild History of Present Illness Reason for Consultation: Atrial fibrillation Requesting Physician: Jaylen Attending Physician: Italia York MD History of Present Illness The patient is an 85-year-old gentleman without a known history of cardiac disease who presented for cataract surgery earlier this morning was noted to have a tachycardia. EKG obtained at that facility revealed atrial fibrillation with rapid ventricular response and left bundle branch block. The patient was subsequently transferred to the emergency room for evaluation. The patient was unaware of any tachycardia or palpitations. In fact, he has been feeling quite well. I interviewed the patient in the presence of his who provided some supplemental information. It seems that he maintains a good level of activity both at his residence and working on the grounds of his local [employer]. He is able to at ascend stairs and carry heavy bags of call. He is able to do some outdoor work without limiting symptoms. He did not endorse symptoms of dyspnea or exertional chest discomfort. He denies dizziness or lightheadedness. No presyncope or syncope. According to his he measures his blood pressure at home occasionally. He has not noticed any high heart rates when he measured his blood pressure. The patient converted to a sinus rhythm recently. He cannot recall feeling any better or any worse when he is in or out of the arrhythmia. Allergies Allergy/AdvReac Type Severity Reaction Status Date / Time No Known Drug Allergies Allergy Uncoded 04/05/21 07:08 Home Medications Medication Instructions Recorded Confirmed Type aspirin 81 mg tablet,delayed 81 mg PO QAM tab 07/25/19 04/05/21 History release Patient History Medical History (Updated 04/05/21 @ 17:08 by Virgil Simons MD) Anemia Carotid artery stenosis Left ICA 50-69%, right ICA 1-49% on doppler December 2009 Dyslipidemia no meds Hiatal hernia LBBB (left bundle branch block) Prediabetes no meds Surgical History History of colonoscopy History of inguinal hernia repair History of tooth extraction History of tympanoplasty Family History Sister Cancer Hearing loss Father Hearing loss Brother Prostate cancer Denies family history of Ovarian cancer Myocardial infarction Breast cancer Colorectal cancer Social History (Updated 04/05/21 @ 11:24 by Italia York MD) Smoking Status: Never smoker Tobacco Type: Cigarettes, Pipe and Cigars Age Started Using Tobacco: 18; Age Quit Using Tobacco: 30; packs per day: 0.5; Number of Years Since Quit: 50; Second Hand Exposure: No; Hx Alcohol Use: No Hx Substance Use: No Preferred Language: Sami Communication Ability: Effective Visual Impairment: Limited Hearing Ability: Normal Stewarding Supervisor Required: No Beliefs That Will Affect Care: None marital status: Current Living Situation: Spouse current occupational status: retired current occupation: used to work at [employer] Feels Safe at Home: Yes Safety Concerns: Feels Safe At This Time Childhood Exposure to Second-Hand Smoke: No caffeine: Yes (tea/coffee) during the past year weight has: remained stable Dental Care, Regularly: No Physical Activity Frequency: Does not Exercise Seatbelt Use: always Sunscreen Use: No Assistive Devices: None Review of Systems Review of Systems: Per HPI. As noted in the other history and physical he did have a. Over the summer where he lost taste and smell and had some other viral symptoms. Treated conservatively. According to his he does snore. Physical Exam Physical Exam: The patient is alert and oriented. Mood and affect appeared normal. He answered all questions appropriately. HEENT: Pupils are equal and reactive to light and accommodation. Extraocular movements are intact. The sclerae are anicteric. Neuro: Cranial nerves intact Lungs: Clear to auscultation bilaterally. He has good air movement without use of accessory muscles. No rales wheezes or rhonchi. Cardiac: Heart demonstrates a regular rate and rhythm. Normal S1 and S2. No murmurs on examination. Pulses: The patient has palpable radial pulses bilaterally that are equal in intensity Extremities: There was no evidence of hypoperfusion. There is no cyanosis or clubbing. There is no edema. Skin: I did not appreciate any rashes on examination today. Results & Data ([facility]) Vital Signs (Past 12 Hours) Vital Signs Temp Pulse Pulse Resp BP BP Pulse Ox 04/05/21 15:25 36.6 C 74 18 178/81 H 99 04/05/21 14:57 36.7 C 66 20 143/64 H 98 04/05/21 14:50 66 31 H 97 04/05/21 14:40 68 29 H 98 04/05/21 14:30 67 17 143/64 H 97 04/05/21 14:20 67 27 H 97 04/05/21 14:10 68 24 97 04/05/21 14:00 66 19 131/66 96 04/05/21 13:50 68 23 96 04/05/21 13:40 72 27 H 96 04/05/21 13:30 68 21 129/64 96 04/05/21 13:20 72 24 95 04/05/21 13:10 69 27 H 96 04/05/21 13:00 65 21 118/64 96 04/05/21 12:50 70 21 97 04/05/21 12:40 71 25 H 96 04/05/21 12:30 136 H 26 H 04/05/21 12:20 119 H 20 04/05/21 12:10 176 H 25 H 98 04/05/21 12:00 140 H 22 97 04/05/21 11:50 152 H 25 H 97 04/05/21 11:40 144 H 21 97 04/05/21 11:30 147 H 24 95 04/05/21 11:20 136 H 30 H 97 04/05/21 11:10 154 H 25 H 96 04/05/21 11:00 153 H 26 H 130/84 97 04/05/21 10:50 157 H 22 98 04/05/21 10:40 141 H 22 97 04/05/21 10:30 134 H 27 H 93 04/05/21 10:20 147 H 27 H 98 04/05/21 10:10 169 H 20 97 04/05/21 10:00 139 H 14 96 04/05/21 09:50 146 H 27 H 97 04/05/21 09:40 135 H 21 97 04/05/21 09:30 123 H 17 108/92 95 04/05/21 09:20 109 H 20 95 04/05/21 09:10 132 H 21 95 04/05/21 09:00 163 H 24 98 04/05/21 08:50 160 H 29 H 97 04/05/21 08:47 97 04/05/21 08:43 160 H 19 98 04/05/21 08:34 36.8 C 161 H 20 152/113 H 97 Laboratory Results Abnormal Lab Results 04/05/21 04/05/21 04/05/21 08:56 08:56 08:56 WBC 7.17 RBC 4.04 L Hgb 13.0 L Hct 39.0 L MCV 96.5 MCH 32.2 MCHC 33.3 RDW Std Deviation 49.7 H RDW Coeff of Kehinde 14.1 Plt Count 241 MPV 10.0 Immature Gran % (Auto) 0.0 Neut % (Auto) 69.0 Lymph % (Auto) 15.6 [place] % (Auto) 8.8 Eos % (Auto) 6.0 Baso % (Auto) 0.6 Neut # (Auto) 4.95 Lymph # (Auto) 1.12 L [place] # (Auto) 0.63 H Eos # (Auto) 0.43 Baso # (Auto) 0.04 Immature Gran # (Auto) 0.00 PT 10.3 INR 1.0 APTT 26.5 PTT Ratio 1.0 Sodium 140 Potassium 4.1 Chloride 107 Carbon Dioxide 22 Anion Gap 10.0 BUN 23 H Creatinine 1.36 Est Cr Clr Drug Dosing Not Reportable Est GFR ( Amer) 54.6 Est GFR (Non-Af Amer) 47.1 BUN/Creatinine Ratio 16.9 Glucose 117 H Calcium 9.4 Phosphorus Magnesium Total Bilirubin 0.8 AST 18 ALT 22 Alkaline Phosphatase 82 Troponin I < 0.015 Total Protein 7.5 Albumin 3.7 Globulin 3.8 Albumin/Globulin Ratio 1.0 Lipase 70 L TSH SARS-CoV-2, RNA, NAAT SARS-CoV-2 IgG & IgM Ab 04/05/21 04/05/21 04/05/21 08:56 08:56 08:56 WBC RBC Hgb Hct MCV MCH MCHC RDW Std Deviation RDW Coeff of Kehinde Plt Count MPV Immature Gran % (Auto) Neut % (Auto) Lymph % (Auto) [place] % (Auto) Eos % (Auto) Baso % (Auto) Neut # (Auto) Lymph # (Auto) [place] # (Auto) Eos # (Auto) Baso # (Auto) Immature Gran # (Auto) PT INR APTT PTT Ratio Sodium Potassium Chloride Carbon Dioxide Anion Gap BUN Creatinine Est Cr Clr Drug Dosing Est GFR ( Amer) Est GFR (Non-Af Amer) BUN/Creatinine Ratio Glucose Calcium Phosphorus 3.1 Magnesium 2.3 Total Bilirubin AST ALT Alkaline Phosphatase Troponin I Total Protein Albumin Globulin Albumin/Globulin Ratio Lipase TSH 3.250 SARS-CoV-2, RNA, NAAT SARS-CoV-2 IgG & IgM Ab Positive A 04/05/21 09:09 WBC RBC Hgb Hct MCV MCH MCHC RDW Std Deviation RDW Coeff of Kehinde Plt Count MPV Immature Gran % (Auto) Neut % (Auto) Lymph % (Auto) [place] % (Auto) Eos % (Auto) Baso % (Auto) Neut # (Auto) Lymph # (Auto) [place] # (Auto) Eos # (Auto) Baso # (Auto) Immature Gran # (Auto) PT INR APTT PTT Ratio Sodium Potassium Chloride Carbon Dioxide Anion Gap BUN Creatinine Est Cr Clr Drug Dosing Est GFR ( Amer) Est GFR (Non-Af Amer) BUN/Creatinine Ratio Glucose Calcium Phosphorus Magnesium Total Bilirubin AST ALT Alkaline Phosphatase Troponin I Total Protein Albumin Globulin Albumin/Globulin Ratio Lipase TSH SARS-CoV-2, RNA, NAAT NEGATIVE SARS-CoV-2 IgG & IgM Ab Diagnostic Findings 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 Some interstitial disease and possible COPD. Echocardiogram obtained today revealed moderately reduced LV systolic function with mild left atrial dilation and mild mitral regurgitation. PG Care Time/CCT Total # of Minutes Spent Total Time Spent with Patient: Total time spent is greater than 50% in coordination of care (as documented) at patient's floor/unit and/or counseling patient: Coding Level of Care Code INT OBSERVATION CARE 70M LVL 3 Diagnoses Atrial fibrillation with rapid ventricular response I48.91 LBBB (left bundle branch block) I44.7 Cardiomyopathy I42.9 Mitral regurgitation I34.0
[2021-04-05] MEDS: METOPROLOL TARTRATE 25 MG TAB PO SCH ×3 (18:30→23:57)
[2021-04-05] MEDS: APIXABAN 2.5 MG TAB PO SCH (20:16)
[2021-04-06] MEDS: METOPROLOL TARTRATE 25 MG TAB PO SCH (05:23)
[2021-04-06 06:49] LABS: Basophils # (auto) 0.04 K/uL (0-0.2); Basophils % (auto) 0.6 %; Eosinophils # (auto) 0.45 K/uL (0-0.5); Eosinophils % (auto) 6.5 %; Hemoglobin 12.6 g/dL (14.0-18.0); Immature Granulocytes # (auto) 0.01 K/uL (0.00-0.02); Immature Granulocytes % (auto) 0.1 %; Lymphocytes # (auto) 1.22 K/uL (1.2-3.4); Lymphocytes % (auto) 17.5 %; Mean Corpuscular Hemoglobin 32.1 pg (25-34); Mean Corpuscular Hgb Conc 33.2 g/dL (32-36); Mean Corpuscular Volume 96.9 fL (80-100); Mean Platelet Volume 10.3 fL (7.4-10.4); Monocytes % (auto) 8.6 %; Neutrophils # (auto) 4.64 K/uL (1.4-6.5); Neutrophils % (auto) 66.7 %; Platelet Count 241 K/uL (130-400); RDW Coefficient of Variation 14.5 % (11.5-14.5); RDW Standard Deviation 51.5 fL (36.4-46.3); Red Blood Count 3.92 M/uL (4.7-6.1); White Blood Count 6.96 K/uL (4.8-10.8)
[2021-04-06 07:21] LABS: BUN Creatinine Ratio 22.9 (10-20); Calcium 9.4 mg/dl (8.5-10.1); Creatinine Clr Calc Pharmacy 47.8 ml/min; Est GFR (African American) 66.9 ml/min; Est GFR (Non-African American) 57.7 ml/min; Magnesium 2.3 mg/dl (1.8-2.4); Potassium 4.5 mmol/L (3.5-5.1)
[2021-04-06 07:29] LABS: Estimated Average Glucose 123 mg/dl; Hemoglobin A1C 5.9 % (4.5-5.6)
[2021-04-06 07:31] LABS: Ferritin 60.7 ng/ml (8-388)
[2021-04-06] MEDS: APIXABAN 2.5 MG TAB PO SCH (08:13)
[2021-04-06 08:57] LABS: Folate (Folic Acid) > 20.00 ng/ml (>5.38); Vitamin B12 638 pg/ml (193-986)
[2021-04-06] MEDS ORDERED: lisinopril 5 MG TAB PO SCH (09:00)
[2021-04-06] MEDS ORDERED: ASPIRIN 81 MG ECTAB PO SCH (09:00)
--- NOTE | 2021-04-06 10:13 | Cardiology Progress Note ---
Date of Service April 06, 2021 Assessment & Plan (1) Atrial fibrillation with rapid ventricular response: (2) LBBB (left bundle branch block): (3) Cardiomyopathy: (4) Mitral regurgitation: Plan: 1. Atrial fibrillation: Unclear duration. Converted spontaneously yesterday. No recurrence. The could be reasonable to send him home on metoprolol succinate 50 mg daily. He will continue apixaban 5 mg twice daily indefinitely. We will need to follow him in the clinic to see if he has any recurrences require some additional medication adjustment. 2. Cardiomyopathy: No symptoms. I think we can convert his metoprolol tartrate to metoprolol succinate 50 mg daily. He was started on low-dose of lisinopril. We will see him as an outpatient for reassessment. 3. Left bundle branch block: Unknown duration. I cannot find an old EKG in his record. This is associated with coronary disease and cardiomyopathy. Also possibly just age related. 4. Mitral regurgitation: Mild Admission and Anticipated Discharge Date Admission Date: April 05, 2021 Subjective This morning patient claims to be feeling well. He has been ambulatory to the bathroom without dizziness. No chest pain. No sense of palpitation. No limiting dyspnea. Review of Systems Review of Systems: Per HPI Physical Exam Physical Exam: The patient is alert and oriented. Mood and affect appeared normal. He answered all questions appropriately. HEENT: Pupils are equal and reactive to light and accommodation. Extraocular movements are intact. The sclerae are anicteric. Neuro: Cranial nerves intact Lungs: Respiratory effort Cardiac: Regular rhythm. Pulses: The patient has palpable radial pulses bilaterally that are equal in intensity Extremities: There was no evidence of hypoperfusion. There is no cyanosis or clubbing. There is no edema. Skin: I did not appreciate any rashes on examination today. Results & Data ([facility]) Vital Signs (Past 12 Hours) Vital Signs Temp Pulse Pulse Resp BP Pulse Ox 04/06/21 07:07 37.2 C 64 18 181/89 H 97 04/06/21 03:34 36.9 C 63 19 170/87 H 96 04/05/21 23:05 62 04/05/21 22:58 36.8 C 66 17 160/57 H 95 Laboratory Results Abnormal Lab Results 04/05/21 04/05/21 04/05/21 08:56 08:56 08:56 WBC RBC Hgb Hct MCV MCH MCHC RDW Std Deviation RDW Coeff of Kehinde Plt Count MPV Immature Gran % (Auto) Neut % (Auto) Lymph % (Auto) Cocke % (Auto) Eos % (Auto) Baso % (Auto) Neut # (Auto) Lymph # (Auto) Cocke # (Auto) Eos # (Auto) Baso # (Auto) Immature Gran # (Auto) Sodium Potassium Chloride Carbon Dioxide Anion Gap BUN Creatinine Est Cr Clr Drug Dosing Est GFR ( Amer) Est GFR (Non-Af Amer) BUN/Creatinine Ratio Glucose Estimat Average Glucose Hemoglobin A1c Calcium Phosphorus 3.1 Magnesium 2.3 Iron TIBC Transferrin Transferrin % Sat Ferritin Vitamin B12 Folate TSH 3.250 SARS-CoV-2 IgG & IgM Ab Positive A 04/06/21 04/06/21 04/06/21 06:27 06:27 06:27 WBC 6.96 RBC 3.92 L Hgb 12.6 L Hct 38.0 L MCV 96.9 MCH 32.1 MCHC 33.2 RDW Std Deviation 51.5 H RDW Coeff of Kehinde 14.5 Plt Count 241 MPV 10.3 Immature Gran % (Auto) 0.1 Neut % (Auto) 66.7 Lymph % (Auto) 17.5 Cocke % (Auto) 8.6 Eos % (Auto) 6.5 Baso % (Auto) 0.6 Neut # (Auto) 4.64 Lymph # (Auto) 1.22 Cocke # (Auto) 0.60 H Eos # (Auto) 0.45 Baso # (Auto) 0.04 Immature Gran # (Auto) 0.01 Sodium 138 Potassium 4.5 Chloride 109 H Carbon Dioxide 26 Anion Gap 3.0 BUN 26 H Creatinine 1.15 Est Cr Clr Drug Dosing 47.8 Est GFR ( Amer) 66.9 Est GFR (Non-Af Amer) 57.7 BUN/Creatinine Ratio 22.9 H Glucose 118 H Estimat Average Glucose 123 Hemoglobin A1c 5.9 H Calcium 9.4 Phosphorus Magnesium 2.3 Iron 87 TIBC 353 Transferrin 280 Transferrin % Sat 22 Ferritin 60.7 Vitamin B12 Folate TSH SARS-CoV-2 IgG & IgM Ab 04/06/21 06:27 WBC RBC Hgb Hct MCV MCH MCHC RDW Std Deviation RDW Coeff of Kehinde Plt Count MPV Immature Gran % (Auto) Neut % (Auto) Lymph % (Auto) Cocke % (Auto) Eos % (Auto) Baso % (Auto) Neut # (Auto) Lymph # (Auto) Cocke # (Auto) Eos # (Auto) Baso # (Auto) Immature Gran # (Auto) Sodium Potassium Chloride Carbon Dioxide Anion Gap BUN Creatinine Est Cr Clr Drug Dosing Est GFR ( Amer) Est GFR (Non-Af Amer) BUN/Creatinine Ratio Glucose Estimat Average Glucose Hemoglobin A1c Calcium Phosphorus Magnesium Iron TIBC Transferrin Transferrin % Sat Ferritin Vitamin B12 638 Folate > 20.00 TSH SARS-CoV-2 IgG & IgM Ab PG Care Time/CCT Total # of Minutes Spent Total Time Spent with Patient: Total time spent is greater than 50% in coordination of care (as documented) at patient's floor/unit and/or counseling patient: Coding Level of Care Code 35979 Subseq Hosp Care Lvl 2 Diagnoses Atrial fibrillation with rapid ventricular response I48.91 LBBB (left bundle branch block) I44.7 Cardiomyopathy I42.9 Mitral regurgitation I34.0
--- NOTE | 2021-04-06 13:25 | Electrocardiogram Report ---
Test Reason : Blood Pressure : / mmHG Vent. Rate : 070 BPM Atrial Rate : 070 BPM P-R Int : 152 ms QRS Dur : 166 ms QT Int : 478 ms P-R-T Axes : 058 -28 119 degrees QTc Int : 516 ms Normal sinus rhythm Possible Left atrial enlargement Left bundle branch block Abnormal ECG When compared with ECG of 05-APR-2021 12:41, No significant change was found Confirmed by Deo Simons ([id number]) on 04/06/2021 1:24:37 PM Referred By: REFERRED SELF Confirmed By:Ezequiel Simons
--- NOTE | 2021-04-06 17:53 | Discharge Summary ---
Date of Service April 06, 2021 Admission HPI Per Admitting Provider This patient is an 85-year-old male with a history of prehypertension, prediabetes, dyslipidemia, normocytic anemia, and asymptomatic carotid artery stenosis, who presents to the ER after being found to be in rapid atrial fibrillation preoperatively for cataract surgery this morning. He is completely asymptomatic-he denies any chest pains or shortness of breath, no nausea or vomiting, no abdominal pains, no numbness or tingling or weakness, no lightheadedness. He is quite active in his daily life. He does report that about 1 to 2 months ago, he lost his taste and smell and had shortness of breath and significant fatigue for about 1 to 2 weeks, but was never tested for Covid. He is not vaccinated against Covid. He recovered from that illness and has been doing well ever since. He has never noted his heart rate to be high but has been told that his blood pressure has been borderline high in the past but was not prescribed antihypertensives. He quit smoking 50 years ago and does not drink any alcohol. In the ER, he was found to have a new LBBB, and heart rates were in the 150s- 160s in atrial fibrillation. He was given a bolus of IV Cardizem with marginal improvement but after that wore off, his heart rates were back in the 140s-150s when I saw him. Electrolytes were normal, TSH was not yet checked, Covid-19 test was negative. His vital signs other than the tachycardia were normal. He is mildly anemic which is chronic. Troponin was negative. Chest x-ray showed evidence for underlying COPD and mild interstitial lung disease but nothing acute. He will be admitted for rapid atrial fibrillation and new onset LBBB for further evaluation. Principal Diagnosis atrial fibrillation with rapid response hfref Discharge Exam The patient appeared well Vital signs as documented. Lungs are clear to auscultation and appear unlabored Cardiac exam, irregular rate controlled rhythm newfound left bundle branch block Abdominal exam reveals normal bowel sounds, soft non tender, no masses Extremities are nonedematous and both pedal pulses are normal. Neurologic exam is alert and oriented, no focal loss of strength or sensation Skin is without bruises or rashes Psychologically is without concerns for anxiety or depression. Discharge Data Allergies Allergy/AdvReac Type Severity Reaction Status Date / Time No Known Drug Allergies Allergy Uncoded 04/05/21 07:08 Consultations 11/29/21 10:21 ED Decision to Admit Stat 04/05/21 11:19 Consult Cardiology Routine Hospital Course (1) Rapid atrial fibrillation: With new onset rapid atrial fibrillation which is asymptomatic With new LBBB. Troponin negative and no chest pain -Echocardiogram has depressed ejection fraction which cardiology hopes is from prolonged atrial fibrillation as an outpatient. -Consult cardiology-recommends rate control strategy for now now recommending Toprol succinate 50 mg daily on discharge -Continues on Eliquis 5 mg p.o. twice daily for stroke risk reduction-was counseled on this and is agreeable, his risk for bleeding is low-does have a mild anemia and CBC should be monitored closely-last colonoscopy over 10 years ago -Continue home aspirin which he was on for carotid artery stenosis - TSH normal 04/05/2021 -Checking SARS-CoV-2 antibodies are positive to confirm he did have a Covid infection in the last 1 to 2 months-perhaps if he has a cardiomyopathy-this could be a precursor? As echocardiogram revealed heart failure reduced ejection fraction patient was also begun on lisinopril.-Outpatient follow-up with Dr. Simons and likely have repeat echocardiogram to determine if he needs other medications for heart failure reduced ejection fraction or even a stress test as he does have a time nonspecific left frontal branch block present (2) LBBB (left bundle branch block): As above It is ejection fraction work-up per outpatient cardiology preference (3) Prediabetes: Check hemoglobin A1c in the morning No need for Accu-Cheks or supplemental insulin (4) Dyslipidemia: Has been told he had dyslipidemia in the past but is not on treatment Follow-up with PCP (5) Asymptomatic carotid artery stenosis without infarction: Continue aspirin Not on statin-defer to PCP (6) Anemia: Mild at 13 for hemoglobin, normocytic, chronic for many years No evidence of bleeding from anywhere that he knows of -Check iron studies, B12, folate, TSH DNR/DNI as per discussion with patient with his at the bedside Total Time Total Time Spent Total Time Spent (In Minutes): It required greater than 30 minutes to prepare this patient for discharge Discharge Plan Discharge Items Patient Disposition: Home - Self-Care Reason For Visit: RAPID ATRIAL FIBRILLATION Discharge Diagnosis: rapid heart rate, atrial fibrillation reduced heart muscle function, started on medication to help Activity: Per Instructions section Activity Comment: no intentional exercise until cleared by cardiology Non-emergency contact: Primary Care Provider and Manager [employer] Call non-emergency contact if: your symptoms worsen Follow-up/Referrals: Virgil Simons MD [Physician] - Diet: Low Sodium (2gm) Addtl Attending Provider Instructions: Call 911 and go to the Emergency Room if: * You have tightness or pain in your chest that does not go away with rest or Nitroglycerin * You are very short of breath even with rest Call your doctor if any of the following symptoms or problems start or get worse: * Shortness of breath or difficulty breathing * Wake up at night short of breath * Chest pain * Cough * Swelling of your hands, fee, or legs * More fatigued or tired with your normal activity * Palpitations - sudden fast heart beats WEIGHT * Weigh yourself every morning after using the bathroom. * Use the same scale. * Wear the same amount of clothing. * Write your weight down on your chart. * Call your doctor if you gain more than 2-3 pounds in 1-2 days. MEDICATIONS * Use this discharge instruction sheet for instructions. * Take your medications at the time your doctor ordered. * Do not skip a dose of your medicines. * If you miss a dose of medicine, take as soon as possible, but DO NOT DOUBLE A DOSE. * Read your medicine information when you get home. * Know all of the side effects of your medicine. * Call your doctor's office if you have any side effects. * Be sure all of your doctors know what medicine and herbs you take (including cold, flu, and herbal medicine). * Pain Medicine: If you do not get relief from your pain, please call your doctor for help. Take the following with you to your follow-up doctor appointments: * Weight Chart * Medication List * List of questions Do not drink excessive alcohol, beer or wine. Medication Instructions: Your condition is typically treated with an anticoagulant. Anticoagulants will thin your blood to help prevent new clots. * You should take her medication exactly as directed. * Never skip a dose. * Never take a double dose. If you miss a dose, take it as soon as you remember. Call your Primary Care doctor if you experience any of the following: * Swelling or Pain in your leg * Sudden, continuous pain deep in a muscle * Pain that worsens when you are active or when you stand still for a long time * Chest Pain * Sudden Shortness of Breath * Rapid or pounding heart beat * Fainting * Dizziness * Cough with blood or bloody sputum * Sweating more than normal * Bruises * Heavy or uncontrolled bleeding * Blood in your urine, stool or vomit * Black or tarry stools Caring for Your Self at Home: * Avoid sitting, standing or lying down for long periods without moving your legs and feet * When traveling by car, stop to get out and move around at least once every 3 hours * On long airplane, train or bus rides, get up and move around when possible * If you can't get up, wiggle your toes and tighten your calves to keep your blood moving Follow Up: It is important for you to keep your follow up appointments with your medical provider. Pending Studies at Discharge: No Stand-Alone Forms: [facility], Smoking Cessation Medications and DC Order Prescriptions: New Eliquis 2.5 mg Tablet 5 mg PO BID Qty: 60 RF: 0 lisinopril [Zestril] 5 mg Tablet 5 mg PO QAM Qty: 30 RF: 5 metoprolol succinate [Toprol XL] 50 mg tablet extended release 24 hr 50 mg PO DAILY Qty: 30 RF: 5 Continued aspirin 81 mg tablet,delayed release (DR/EC) 81 mg PO QAM RF: 0 Discharge Orders: Discharge Order (Routine); Ordered 04/06/21 Ordered By: Lazaro Lund/Other Patient Handouts: Using Blood Thinners (Anticoagulants), Ventricular Arrhythmia, AFL/Afib Admission Data Admit Date/Time: 04/05/21 11:19 Attending Provider: Lazaro Murillo Admit Provider: Italia York Primary Care Provider: Blas Beck III Other Providers: Virgil Simons ; Italia York Other Interventions: Discharge Summary Assessment (RN) Last Done: 04/06/21 11:50 Coding Level of Care Code D/C DAY MANAGEMENT >30 MINS Diagnoses Rapid atrial fibrillation I48.91 LBBB (left bundle branch block) I44.7 Prediabetes R73.03 Dyslipidemia E78.5 Asymptomatic carotid artery stenosis without infarction I65.29 Anemia D64.9
== END 2021-04-06 13:56 | disposition home or self-care (01) ==
LOC: ED 08:35 → 2S 08:35 → SUATTDRO 11:19 → 2S 14:57

== ENCOUNTER 2023-11-07 06:44 | Inpatient (IN) ==
--- NOTE | 2023-11-02 11:08 | Anesthesiology Consultation ---
Date of Service November 02, 2023 Assessment & Plan (1) Encounter for pre-operative examination: Chart Review Chart Review: Acceptable Risk for Surgery and Patient NOT seen in Pre Admission Testing Consults Requested none History Surgery Operation Date: 11/07/23 14:15 Proposed Procedures p TURBT (Transurethral Resection of the Bladder Tumor). Cut Out the Tumor(s) by Going Through the Urethra, With or Without Multiple Cup Biopsies of the Bladder - Vikram Soto MD Height/Weight Height: 5 ft 7 in Weight: 77.111 kg Allergies Allergy/AdvReac Type Severity Reaction Status Date / Time No Known Allergies Allergy Verified 11/02/23 09:56 Medications Home Medications Medication Instructions Recorded Confirmed Last Taken acetaminophen 325 mg capsule 650 mg PO QID PRN Pain 05/18/23 11/02/23 Unknown (Tylenol) alfuzosin 10 mg tablet,extended 10 mg PO HS 11/02/23 11/02/23 Unknown release 24 hr (Uroxatral) famotidine-Ca carb-mag hydrox 10 1 tab PO BID PRN Heartburn 11/02/23 11/02/23 Unknown mg-800 mg-165 mg chewable tablet (Pepcid Complete) lisinopril 40 mg tablet 40 mg PO QAM 11/02/23 11/02/23 Unknown metoprolol succinate 50 mg 75 mg PO QAM 11/02/23 11/02/23 Unknown tablet,extended release 24 hr vit no.133-ferrous 1 tab PO QAM 11/02/23 11/02/23 Unknown fumarate 28 mg-folic acid 800 mcg tablet () Past Medical History Medical History Hx of transient ischemic attack (TIA) 06/21/23: treated at [facility] emergency room. possibly related to medication changes/chemotherapy and/or radiation treatments at the time. son reports increase in Metoprolol and started on Plavix at the time w/ follow up with [facility] Cardiology - never had f/u with neurology. no residual effects. GERD (gastroesophageal reflux disease) Gross hematuria son reports that it has been better since stopping his anticoagulants Secondary carcinoma of bone pt/family unaware (denies any other cancer other than bladder) Generalized weakness Orthostatic hypotension LBBB (left bundle branch block) Bladder carcinoma surgical intervention in 04/2023 at [facility] + chemotherapy & radiation treatments with [facility] early 2023. Hypertension DNR (do not resuscitate) on file as of 07/2023, pt is palliative care Cardiomyopathy Atrial fibrillation Follows with Dr. Simons Taking Eliquis (currently on hold r/t gross hematuria) Chronic anticoagulation currently on hold due to gross hematuria (was taking Plavix and Eliquis) History of COVID-19 03/2021- cold symptoms > resolved Anemia Chronic, baseline hgb 11-13 range per chart review - had labs 11/02/23 awaiting results, had last blood transfusion 10/27/23 Dyslipidemia family denies Prediabetes Per records, patient unaware Carotid artery stenosis 2009 carotid imaging: LICA 50-69%, ROULA 1-49% Hiatal hernia Past Family History Family History Sister No problems noted. Father Hearing loss Brother Prostate cancer Mother , in her 80s Heart failure Father , in his 80s Natural with unknown cause Brother Cancer Pt unsure of type of cancer Sister Cancer 1 sister of pancreatic cancer 6 sisters but pt uncertain if any had cancer Son Transplant Kidney and liver transplant unrelated to cancer Son No problems noted. Son No problems noted. Other No family history of adverse response to anesthesia Denies family history of Ovarian cancer Myocardial infarction Breast cancer Colorectal cancer Past Surgical History Surgical History Hx of cystoscopy (11/2022) under anesthesia and placement of catheter (no longer in place) at [facility]. History of transurethral resection of bladder tumor (TURBT) (04/2023) Dr Ely at [facility] History of esophagogastroduodenoscopy (EGD) History of cataract surgery B/L cataract surgery (Spring 2021) History of colonoscopy History of tooth extraction History of tympanoplasty History of inguinal hernia repair Social History Smoking Status: Former smoker Do You Dip or Chew Tobacco: Yes (quit "years ago") Smoking End Date: "years ago" Hx Alcohol Use: No Hx Substance Use: No substance use type: does not use Testing Electrocardiogram Date: 10/24/23 Findings: + NSR @ and + LBBB Echocardiogram Date: 07/20/23 EF: 40-45 Valvular Disease: + MR (mild)
[2023-11-07] MEDS: SODIUM CHLORIDE 0.9% 1000ML IV SCH (07:47)
[2023-11-07] MEDS ORDERED: fentaNYL citrate PF 100 MCG/2 ML VIAL IV PRN (08:06)
[2023-11-07] MEDS ORDERED: HYDROmorphone INJ 2 MG/ML SYR/VIAL IV PRN (08:06)
[2023-11-07] MEDS ORDERED: ATROPINE SULFATE 0.1 MG/ML 10ML SYR IV PRN (08:06)
[2023-11-07] MEDS ORDERED: ePHEDrine sulfate 50 MG/ML AMP IV PRN (08:06)
[2023-11-07] MEDS ORDERED: PROMETHAZINE HCL 6.25 MG in SODIUM CHLORIDE 0.9% 50 ML IV PRN (08:06)
--- NOTE | 2023-11-07 08:06 | History & Physical Bridge Note ---
Date of Service November 07, 2023 History & Physical Bridge Note I have examined the patient, reviewed the History & Physical and in the interval since the performance of the History & Physical I have noted the following changes of clinical significance: no changes noted
[2023-11-07] MEDS ORDERED: fentaNYL citrate PF 100 MCG/2 ML VIAL ONE (08:26)
[2023-11-07] MEDS: ceFAZolin 2000MG 2,000 MG/15 ML SYR IV SCH (08:31)
[2023-11-07] MEDS ORDERED: ONDANSETRON INJ 2 MG/ML 2 ML VIAL ONE (08:55)
[2023-11-07] MEDS ORDERED: DEXAMETHASONE SOD INJ 4 MG/ML VIAL ONE (08:55)
[2023-11-07] MEDS ORDERED: LIDOCAINE 2% 2 ML VIAL/AMP(20MG/ML) INFIL ONE (08:55)
[2023-11-07] MEDS ORDERED: ROCURONIUM BROMIDE 10 MG/ML 5 ML VIAL IV ONE (08:55)
[2023-11-07] MEDS ORDERED: PROPOFOL IV EMULSION 10 MG/ML 20 ML VIAL IV ONE (08:55)
[2023-11-07] MEDS ORDERED: PHENYLEPHRINE 100MCG/ML 10ML SYR IV ONE (08:58)
[2023-11-07] MEDS ORDERED: SUGAMMADEX SODIUM 200 MG/2 ML VIAL IV ONE (09:05)
--- NOTE | 2023-11-07 09:05 | Post Operative Brief Note ---
PG Immediate Post Op with CF Date of Surgery November 07, 2023 Pre & Post Diagnosis Operation Date: 11/07/23 08:35 Pre-Op Diagnosis: Bladder Carcinoma Post-Op Diagnosis: Bladder Carcinoma I identified the patient and participated in the time-out.: Yes Procedure Operation Date: 11/07/23 08:35 Actual Procedures p Transurethral Resection of the Bladder Tumor(Not Applicable) - Vikram Soto MD Surgeon Vikram Soto MD Cost And Risk Analysis Manager None Estimated Blood Loss 2 Findings Consistent with Post-Op Diagnosis Specimens Specimen Description: None per Dr. Soto Anesthesia Type General Complications none
[2023-11-07] MEDS ORDERED: ESMOLOL HCL INJ 10 MG/ML 10ML VIAL IV ONE (09:10)
[2023-11-07] MEDS ORDERED: GLYCOPYRROLATE 0.2 MG/ML VIAL ONE (09:10)
--- NOTE | 2023-11-07 09:22 | Operative Report ---
PG Post Operative Report Pre & Post Diagnosis Operation Date: 11/07/23 08:35 Pre-Op Diagnosis: Bladder Carcinoma Post-Op Diagnosis: Bladder Carcinoma I identified the patient and participated in the time-out.: Yes Procedure Operation Date: 11/07/23 08:35 Actual Procedures p Transurethral Resection of the Bladder Tumor(Not Applicable) - Vikram Soto MD Surgeon Vikram Soto MD Embroidery Cutter None Estimated Blood Loss 2 Findings Consistent with Post-Op Diagnosis Large necrotic mass invading into left bladder wall. Small amount of clot. Several areas of small oozing fulgurated. Hemostatic at end of case. 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 He has been having significant hematuria requiring blood transfusions. He takes Eliquis and I had held this when I saw him in clinic last week. He presents for a TURBT. Description of Procedure After informed consent was obtained, the patient was transported to the operative suite. General anesthesia was induced. They were placed in dorsal lithotomy position and prepped and draped in sterile fashion. They received preoperative ancef. An appropriate surgical timeout was performed. 27 Chinese resectoscope was inserted per urethra and the bladder. Lara cystoscopy revealed a large necrotic appearing mass taking up to the left lateral wall. This measured greater than 5 cm. Left UO has previously been obstructed was not visible. Right ureteral orifice was patent. There were several small areas of oozing but no significant bleeding. Small amount of clot was evacuated out. His main goal is quality of life so the purpose of this procedure was to control any bleeding. Using a button and a combination of vaporization and coagulation, I controlled the several small areas of oozing. I was not overly aggressive on the necrotic portion because it appeared that this was thin-walled and I did not want to perforate his bladder. There was no concern for perforation. Hemostasis was achieved. Bladder was left full and scope was removed. This concluded the end of the case. All counts correct at the end of the case. I was present, scrubbed and actively participated for the entirety of the procedure. I attest to the content of the Intraoperative Record and any orders documented therein. Any exceptions are noted below.
[2023-11-07] MEDS: ONDANSETRON INJ 2 MG/ML 2 ML VIAL IV PRN (09:27)
--- NOTE | 2023-11-07 10:39 | Anesthesiology Progress Note ---
Date of Service November 07, 2023 Anesthesia Post Procedure Vital Signs Vital Signs: Temp Pulse Resp BP Pulse Ox O2 Del Method O2 Flow Rate 11/07/23 10:25 132 H 20 93/63 L 95 Room Air 11/07/23 10:15 133 H 17 107/69 96 Room Air 11/07/23 10:05 133 H 23 93/70 L 95 Room Air 11/07/23 09:55 134 H 25 H 94/65 L 95 Room Air 11/07/23 09:45 136 H 22 92/70 L 95 Room Air 11/07/23 09:35 136 H 19 104/74 97 Room Air 11/07/23 09:25 137 H 29 H 124/88 100 Oxymask 2 11/07/23 09:18 36.1 C L 136 H 20 132/90 100 Oxymask 2 11/07/23 07:33 37 C 16 134/79 99 Room Air Transfer of Care Handoff Completed per policy Notes Mental Status: alert / awake / arousable and participated in evaluation Patient Amnestic to Procedure: Yes Nausea / Vomiting: adequately controlled Pain: adequately controlled Airway Patency, RR, SpO2: stable & adequate BP & HR: stable & adequate Hydration State: stable & adequate Anesthetic Complications: no major complications apparent Notes: Pt had cystoscopy under [place]. Recovered without difficulty, except for persistent tachycardia in PACU. Pt is awake, conversant, asymptomatic w normal BP and SaO2. Discussed w surgeon an will consult hospitalist for w/u and mgt.
[2023-11-07] MEDS ORDERED: ACETAMINOPHEN 325 MG TAB PO PRN ×2 (10:47→12:03)
[2023-11-07] MEDS ORDERED: MAGNESIUM HYDROXIDE SUSP 30 ML UDC PO PRN (10:47)
[2023-11-07] MEDS ORDERED: ONDANSETRON INJ 2 MG/ML 2 ML VIAL IV PRN (10:47)
[2023-11-07 10:57] LABS: Hematocrit (blood only) 23.9 % (42.0-52.0); Hemoglobin 7.7 g/dl (14.0-18.0); Mean Corpuscular Hgb Conc 32.2 g/dL (32.0-36.0); Mean Corpuscular Volume 102.6 fL (80.0-100.0); Mean Platelet Volume 10.1 fL (9.4-12.4); Platelet Count 192 K/uL (130-400); RDW Coefficient of Variation 16.5 % (11.5-14.5); RDW Standard Deviation 61.7 fL (36.4-46.3); Red Blood Count 2.33 M/uL (4.70-6.10); White Blood Count 9.75 K/ul (4.8-10.8)
[2023-11-07 11:19] LABS: BUN Creatinine Ratio 16.7 (10-20); Creatinine Clr Calc Pharmacy 29.5 ml/min; Est GFR (African American) 43.3 ml/min; Est GFR (Non-African American) 37.3 ml/min; Potassium 4.8 mmol/L (3.5-5.1)
[2023-11-07] MEDS: METOPROLOL TARTRATE 1 MG/ML VIAL IV ONE (11:22)
[2023-11-07 11:31] LABS: Anisocytosis Present; Basophils # (auto) 0.03 K/uL (0.00-0.20); Basophils % (auto) 0.3 %; Eosinophils # (auto) 0.07 K/uL (0.00-0.50); Eosinophils % (auto) 0.7 %; Lymphocytes # (auto) 0.28 K/uL (1.20-3.40); Lymphocytes % (auto) 2.9 %; Monocytes # (auto) 0.26 K/uL (0.11-0.59); Monocytes % (auto) 2.7 %; Neutrophils # (auto) 9.01 K/uL (1.40-6.50); Neutrophils % (auto) 92.4 %; Polychromasia 1+
--- NOTE | 2023-11-07 11:34 | History & Physical Report ---
Date of Service November 07, 2023 Assessment & Plan (1) Bladder carcinoma: Plan: s/p palliative TURP, place shearer monitor output (2) Hypertension: Plan: hypotensive , tachycardiac IV fluids transfuse blood (3) Atrial fibrillation: Plan: IV Lopressor consult card for recommendations (4) Cardiomyopathy: Plan: supportive care (5) Anemia: Plan: due to hematuria transfuse PRN type and cross transfuse 1 unit (6) CKD (chronic kidney disease) stage 3, GFR 30-59 ml/min: Plan: stage 3 shearer IV fluids monitor BMP History of Present Illness Chief Complaint: postop tachycardia Primary Care Provider: Yemi Trotter, DO 88 yo male with h/o metastatic bladder cancer, was not be able to tolerate chemo, radiation, developed hematuria, was taken to or today for palliative TURP , has h/o Afib , i suspect he is rapid afib ,he is not anticoagulated due to hematuria , reports taking his meds this morning, poor historian, reports lower abdomen discomfort, will place shearer, IV Lopressor for rapid afib , denies CP, palpitations, SOB Allergies Allergy/AdvReac Type Severity Reaction Status Date / Time No Known Allergies Allergy Verified 11/07/23 07:26 Home Medications Medication Instructions Recorded Confirmed Type acetaminophen 325 mg capsule 650 mg PO QID PRN Pain 05/18/23 11/07/23 History (Tylenol) alfuzosin 10 mg tablet,extended 10 mg PO HS 11/02/23 11/07/23 History release 24 hr (Uroxatral) famotidine-Ca carb-mag hydrox 10 1 tab PO BID PRN Heartburn 11/02/23 11/07/23 History mg-800 mg-165 mg chewable tablet (Pepcid Complete) lisinopril 40 mg tablet 40 mg PO QAM 11/02/23 11/07/23 History metoprolol succinate 50 mg 75 mg PO QAM 11/02/23 11/07/23 History tablet,extended release 24 hr vit no.133-ferrous 1 tab PO QAM 11/02/23 11/07/23 History fumarate 28 mg-folic acid 800 mcg tablet () Past Med/Surg History Problem List (Updated 11/07/23 @ 11:34 by Amanda Leal MD) CKD (chronic kidney disease) stage 3, GFR 30-59 ml/min Secondary carcinoma of bone (Chronic) DNR no code (do not resuscitate) Physician orders for life-sustaining treatment (POLST) form indicates patient wish for ep-vxz-[id number] status Malnutrition of moderate degree Palliative care by specialist Advanced care planning/counseling discussion Weakness generalized Orthostatic hypotension Recurrent falls Bladder carcinoma Diagnosed on 10/27/22 Hypertension Atrial fibrillation Follows with Dr. Simons Taking Eliquis (currently on hold r/t gross hematuria) Cardiomyopathy LBBB (left bundle branch block) Encounter for pre-operative examination Anemia (Chronic) Asymptomatic carotid artery stenosis without infarction (Acute) Dyslipidemia (Acute) Prediabetes (Acute) Male erectile disorder of organic origin (Acute) Medical History Hx of transient ischemic attack (TIA) 06/21/23: treated at [facility] emergency room. possibly related to medication changes/chemotherapy and/or radiation treatments at the time. son reports increase in Metoprolol and started on Plavix at the time w/ follow up with [facility] [place] Cardiology - never had f/u with neurology. no residual effects. GERD (gastroesophageal reflux disease) Gross hematuria son reports that it has been better since stopping his anticoagulants Secondary carcinoma of bone pt/family unaware (denies any other cancer other than bladder) Generalized weakness Orthostatic hypotension LBBB (left bundle branch block) Bladder carcinoma [place] [facility] chemotherapy & [facility] treatments with [facility] early 2023. Hypertension DNR (do not resuscitate) on file as of 07/2023, pt is palliative care Cardiomyopathy Atrial fibrillation Follows with Dr. Simons Taking Eliquis (currently on hold r/t gross hematuria) Chronic anticoagulation currently on hold due to gross hematuria (was taking Plavix and Eliquis) History of COVID-19 03/2021- cold symptoms > resolved Anemia Chronic, baseline hgb 11-13 range per chart review - had labs 11/02/23 awaiting results, had last blood transfusion 10/27/23 Dyslipidemia family denies Prediabetes Per records, patient unaware Carotid artery stenosis 2009 carotid imaging: LICA 50-69%, ROULA 1-49% Hiatal hernia Surgical History Hx of cystoscopy (11/2022) under anesthesia and placement of catheter (no longer in place) at [facility]. History of transurethral resection of bladder tumor (TURBT) (04/2023) Dr [place] [facility] History of esophagogastroduodenoscopy (EGD) History of cataract surgery B/L cataract surgery (Spring 2021) History of colonoscopy History of tooth extraction History of tympanoplasty History of inguinal hernia repair Family History Sister No problems noted. Father Hearing loss Brother Prostate cancer Mother , in her 80s Heart failure Father , in his 80s Natural with unknown cause Brother Cancer Pt unsure of type of cancer Sister Cancer 1 sister of pancreatic cancer 6 sisters but pt uncertain if any had cancer Son Transplant Kidney and liver transplant unrelated to cancer Son No problems noted. Son No problems noted. Other No family history of adverse response to anesthesia Denies family history of Ovarian cancer Myocardial infarction Breast cancer Colorectal cancer Social History Smoking Status: Former smoker Tobacco Type: Cigarettes, Pipe and Cigars Age Started Using Tobacco: 18; Age Quit Using Tobacco: 30; packs per day: 0.5; Smoking End Date: "years ago"; Second Hand Exposure: No; Do You Dip or Chew Tobacco: Yes (quit "years ago"); Tobacco Cessation Education Requested by Patient: No Hx Alcohol Use: No Hx Substance Use: No Preferred Language: [place]amb[place] Communication Ability: Effective Visual Impairment: No Limitations Hearing Ability: Hard of Hearing 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 Beliefs That Will Affect Care: None marital status: Current Living Situation: Spouse current occupational status: retired current occupation: used to work at [employer] Other Information That Helps Us Care for You: No Childhood Exposure to Second-Hand Smoke: No Diet: regular caffeine: Yes (tea/coffee) during the past year weight has: remained stable Dental Care, Regularly: No Physical Activity Frequency: Does not Exercise Seatbelt Use: always Sunscreen Use: No Assistive Devices: Denture - Upper and Denture - Lower Review of Systems Review of Systems: All systems reviewed & are unremarkable except as noted in Subjective Physical Exam Physical Exam: head atraumatic neck supple chest CTA b/l Heart tachycardic abdomen tender lower abdomen , soft, ND, BS decreased neuro AAO times 3, no focal deficit Results & Data Results & Data Vital Signs (Past 12 Hours) Vital Signs Temp Pulse Pulse Resp BP BP Pulse Ox 11/07/23 11:22 132 H 91/65 L 11/07/23 11:10 133 H 27 H 94/63 L 94 11/07/23 10:55 36.1 C L 132 H 24 87/64 L 97 11/07/23 10:45 132 H 22 96/67 L 95 11/07/23 10:35 132 H 23 90/58 L 97 11/07/23 10:25 132 H 20 93/63 L 95 11/07/23 10:15 133 H 17 107/69 96 11/07/23 10:05 133 H 23 93/70 L 95 11/07/23 09:55 134 H 25 H 94/65 L 95 11/07/23 09:45 136 H 22 92/70 L 95 11/07/23 09:35 136 H 19 104/74 97 11/07/23 09:25 137 H 29 H 124/88 100 11/07/23 09:18 36.1 C L 136 H 20 132/90 100 11/07/23 07:33 37 C 16 134/79 99 O2 Del Method O2 Flow Rate 11/07/23 11:22 11/07/23 11:10 Room Air 11/07/23 10:55 Room Air 11/07/23 10:45 Room Air 11/07/23 10:35 Room Air 11/07/23 10:25 Room Air 11/07/23 10:15 Room Air 11/07/23 10:05 Room Air 11/07/23 09:55 Room Air 11/07/23 09:45 Room Air 11/07/23 09:35 Room Air 11/07/23 09:25 Oxymask 2 11/07/23 09:18 Oxymask 2 11/07/23 07:33 Room Air Laboratory Results Abnormal lab results 11/07/23 Range/Units 10:34 RBC 2.33 L (4.70-6.10) M/uL Hgb 7.7 L (14.0-18.0) g/dl Hct 23.9 L (42.0-52.0) % MCV 102.6 H (80.0-100.0) fL RDW Std Deviation 61.7 H (36.4-46.3) fL RDW Coeff of Kehinde 16.5 H (11.5-14.5) % Neut # (Auto) 9.01 H (1.40-6.50) K/uL Lymph # (Auto) 0.28 L (1.20-3.40) K/uL Sodium 132 L (136-145) mmol/L BUN 27 H (6-23) mg/dl Creatinine 1.62 H (0.6-1.4) mg/dl Glucose 125 H (70-99(Fasting)) mg/dl Calcium 8.0 L (8.6-10.3) mg/dl Code Status & VTE Plan VTE Prophylaxis Plan VTE Prophylaxis will be ordered: Yes PG Care Time/CCT Total # of Minutes Spent Total Time Spent with Patient: Total time spent is greater than 50% in coordination of care (as documented) at patient's floor/unit and/or counseling patient: Coding Level of Care Code 07580 INT INP/OBS CARE 3/75MIN Diagnoses Bladder carcinoma C67.9 Primary hypertension I10 Hypertension type: primary hypertension Paroxysmal atrial fibrillation I48.0 Atrial fibrillation type: paroxysmal Cardiomyopathy, unspecified type I42.9 Cardiomyopathy type: unspecified Anemia D64.9 CKD (chronic kidney disease) stage 3, GFR 30-59 ml/min N18.30 (2) Hypertension Hypertension type: primary hypertension Qualified Code(s): I10 - Essential (primary) hypertension (3) Atrial fibrillation Atrial fibrillation type: paroxysmal Qualified Code(s): I48.0 - Paroxysmal atrial fibrillation (4) Cardiomyopathy Cardiomyopathy type: unspecified Qualified Code(s): I42.9 - Cardiomyopathy, unspecified
[2023-11-07] MEDS ORDERED: SODIUM CHLORIDE 0.9% 250 ML IV PRN (11:50)
[2023-11-07] MEDS: SODIUM CHLORIDE 0.9% 500 ML IV SCH (12:26)
[2023-11-07] MEDS: METOPROLOL TARTRATE 1 MG/ML VIAL IV STA (12:28)
[2023-11-07] MEDS: ACETAMINOPHEN 325 MG TAB PO ONE (12:34)
[2023-11-07] MEDS ORDERED: METOPROLOL TARTRATE 1 MG/ML VIAL IV PRN (13:17)
[2023-11-07] MEDS: METOPROLOL TARTRATE 25 MG TAB PO ONE (13:30)
[2023-11-07] MEDS ORDERED: STAT IV Infusion **Titration per Protocol STA (13:30)
[2023-11-07] MEDS ORDERED: dilTIAZem HCl 5 MG/ML 5 ML VIAL IV STA (13:30)
[2023-11-07] MEDS: dilTIAZem HCl 5 MG/ML 5 ML VIAL IV STA (14:19)
[2023-11-07] MEDS: dilTIAZem HCL 125 MG in DEXTROSE 5% 100 ML IV SCH (14:20)
--- NOTE | 2023-11-07 18:21 | Cardiology Consultation ---
Date of Consultation November 07, 2023 Assessment & Plan (1) Atrial flutter with rapid ventricular response: (2) Paroxysmal atrial fibrillation: (3) Cardiomyopathy: (4) Anemia: Plan ASSESSMENT/PLAN: 1. Atrial flutter: Completely asymptomatic. Onset difficult to know as cannot locate a preprocedural heart rate in EHR but it looks as though his heart rate was elevated throughout. Has known atrial fibrillation. Unfortunately off of anticoagulation therapy given significant hematuria requiring blood transfusion and today scheduled surgery. Recommend anticoagulation therapy when safe from a urologic standpoint. Because he is not on anticoagulation therapy, will continue a rate control strategy for now which seems to be working nicely with low-dose diltiazem IV. Given cardiomyopathy, will try to reduce diltiazem drip and replace with oral beta-izabel 25 mg p.o. every 6 hours of metoprolol tartrate. This was communicated with nursing staff. Preprocedural ECG last month demonstrated sinus bradycardia and thus if he converts to sinus rhythm, more aggressive rate control may be challenging. He may spontaneously convert. 2. Paroxysmal atrial fibrillation: Known issue in the past. On beta-izabel for rate control strategy as per his media services director, Dr. Simons. 3. Cardiomyopathy: Chronic issue. He has declined additional evaluation as per Dr. Simons outpatient notes. Not on ARNI, SGLT2 inhibitor, MRA due to renal function as per outpatient notes. Will resume metoprolol succinate after titration of rate controlling medications, as able. He does not appear to be significantly hypervolemic but does have some lower extremity edema. 4. Anemia: Has had significant hematuria, requiring PRBC transfusions. Will defer to urology if/when anticoagulation therapy can be safely resumed. 5. Disposition: Cardiology will continue to follow. Close follow-up with his primary rental clerk, Dr. Simons, on discharge. Patient care communicated with Dr. Leal of the hospitalist service. Thank you for allowing me to participate in the care of your patient. Please call for any other questions or concerns. Sincerely, Sachin Horta M.D. History of Present Illness Reason for Consultation: "afib" Requesting Physician: Dr. Leal Attending Physician: Vikram Soto MD History of Present Illness Mr. Link is a very pleasant 88-year-old gentleman with a history significant for atrial fibrillation, left bundle branch block, cardiomyopathy, CKD, dyslipidemia, TIA, carotid artery stenosis and bladder cancer (chemotherapy/XRT/surgery). His primary rental clerk is Dr. Simons. He was admitted on 11/07/2023 following outpatient transurethral resection of the bladder tumor by Dr. Soto. He was noted to be tachycardic and therefore was recommended for admission. He has been having significant hematuria and resulting acute blood loss anemia with hemoglobin levels as low as 6.8 on 10/26/2023 for which she underwent PRBC x 3. He has been off of his anticoagulation therapy (Eliquis) for approximately 1 week. It is not clear what his heart rate was prior to surgery. The vitals that are charted include blood pressure and oxygen saturation, but not a heart rate preoperatively. All recorded heart rates however from today have been tachycardic. His last normal charted heart rate was 89 bpm on 11/02/2023 in the outpatient setting with radiation oncology visit. He had an ECG on 10/24/2023 which demonstrated sinus bradycardia at 49 bpm with otherwise left bundle branch block. With the tachycardia today, he has been completely asymptomatic. He denies palpitations or chest pain. He has dyspnea on exertion on occasion over the past 1+ year. He has not been active recently with all of his health issues and has been anemic this entire calendar year. He denies melena or hematochezia. He has had significant hematuria as noted. He denies syncope, near syncope, palpitations, orthopnea. He has lower extremity edema. He does not check his heart rate at home. While here, he was noted to be in atrial flutter and was placed on diltiazem drip by the hospitalist service. His heart rate significantly improved and has been well rate controlled on diltiazem drip at 5 mg/h. Review of systems: As above. Family history: No known premature CAD. Social history: Quit smoking in the past. No significant alcohol use. No drug abuse. Lives at home with his (she is in remission with cancer herself). 3 sons. He was unaccompanied in his hospital room. Allergies Allergy/AdvReac Type Severity Reaction Status Date / Time No Known Allergies Allergy Verified 11/07/23 07:26 Home Medications Medication Instructions Recorded Confirmed Type acetaminophen 325 mg capsule 650 mg PO QID PRN Pain 05/18/23 11/07/23 History (Tylenol) alfuzosin 10 mg tablet,extended 10 mg PO HS 11/02/23 11/07/23 History release 24 hr (Uroxatral) famotidine-Ca carb-mag hydrox 10 1 tab PO BID PRN Heartburn 11/02/23 11/07/23 History mg-800 mg-165 mg chewable tablet (Pepcid Complete) lisinopril 40 mg tablet 40 mg PO QAM 11/02/23 11/07/23 History metoprolol succinate 50 mg 75 mg PO QAM 11/02/23 11/07/23 History tablet,extended release 24 hr vit no.133-ferrous 1 tab PO QAM 11/02/23 11/07/23 History fumarate 28 mg-folic acid 800 mcg tablet () Problem List (Updated 11/07/23 @ 18:33 by Davidson Horta MD) Paroxysmal atrial fibrillation Atrial flutter with rapid ventricular response CKD (chronic kidney disease) stage 3, GFR 30-59 ml/min Secondary carcinoma of bone (Chronic) DNR no code (do not resuscitate) Physician orders for life-sustaining treatment (POLST) form indicates patient wish for [id number] status Malnutrition of moderate degree Palliative care by specialist Advanced care planning/counseling discussion Weakness generalized Orthostatic hypotension Recurrent falls Bladder carcinoma Diagnosed on 10/27/22 Hypertension Atrial fibrillation Follows with Dr. Simons Taking Eliquis (currently on hold r/t gross hematuria) Cardiomyopathy LBBB (left bundle branch block) Encounter for pre-operative examination Anemia (Chronic) Asymptomatic carotid artery stenosis without infarction (Acute) Dyslipidemia (Acute) Prediabetes (Acute) Male erectile disorder of organic origin (Acute) Patient History Medical History Hx of transient ischemic attack (TIA) 06/21/23: treated at [facility] emergency room. possibly related to medication changes/chemotherapy and/or radiation treatments at the time. son reports increase in Metoprolol and started on Plavix at the time w/ [place] [facility] [place] [facility] - never had f/u with neurology. no residual effects. GERD (gastroesophageal reflux disease) Gross hematuria son reports that it has been better since stopping his anticoagulants Secondary carcinoma of bone pt/family unaware (denies any other cancer other than bladder) Generalized weakness Orthostatic hypotension LBBB (left bundle branch block) Bladder carcinoma [place] [facility] [place] & [facility] treatments with [facility] early 2023. Hypertension DNR (do not resuscitate) on file as of 07/2023, pt is palliative care Cardiomyopathy Atrial fibrillation Follows with Dr. Simons Taking Eliquis (currently on hold r/t gross hematuria) Chronic anticoagulation currently on hold due to gross hematuria (was taking Plavix and Eliquis) History of COVID-19 03/2021- cold symptoms > resolved Anemia Chronic, baseline hgb 11-13 range per chart review - had labs 11/02/23 awaiting results, had last blood transfusion 10/27/23 Dyslipidemia family denies Prediabetes Per records, patient unaware Carotid artery stenosis 2009 carotid imaging: LICA 50-69%, ROULA 1-49% Hiatal hernia Surgical History Hx of cystoscopy (11/2022) under anesthesia and placement of catheter (no longer in place) at [facility]. History of transurethral resection of bladder tumor (TURBT) (04/2023) [place] [facility] [place] of esophagogastroduodenoscopy (EGD) History of cataract surgery B/L cataract surgery (Spring 2021) History of colonoscopy History of tooth extraction History of tympanoplasty History of inguinal hernia repair Family History Sister No problems noted. Father Hearing loss Brother Prostate cancer Mother , in her 80s Heart failure Father , in his 80s Natural with unknown cause Brother Cancer Pt unsure of type of cancer Sister Cancer 1 sister of pancreatic cancer 6 sisters but pt uncertain if any had cancer Son Transplant Kidney and liver transplant unrelated to cancer Son No problems noted. Son No problems noted. Other No family history of adverse response to anesthesia Denies family history of Ovarian cancer Myocardial infarction Breast cancer Colorectal cancer Social History Smoking Status: Former smoker Tobacco Type: Cigarettes, Pipe and Cigars Age Started Using Tobacco: 18; Age Quit Using Tobacco: 30; packs per day: 0.5; Smoking End Date: "years ago"; Second Hand Exposure: No; Do You Dip or Chew Tobacco: Yes (quit "years ago"); Tobacco Cessation Education Requested by Patient: No Hx Alcohol Use: No Hx Substance Use: No Preferred Language: Indonesian Communication Ability: Effective Visual Impairment: No Limitations Hearing Ability: Hard of Hearing Multifocal Lens Inspector Required: No Beliefs That Will Affect Care: None marital status: Current Living Situation: Spouse current occupational status: retired current occupation: used to work at [employer] Other Information That Helps Us Care for You: No Feels Safe at Home: Yes Childhood Exposure to Second-Hand Smoke: No Diet: regular caffeine: Yes (tea/coffee) during the past year weight has: remained stable Dental Care, Regularly: No Physical Activity Frequency: Does not Exercise Seatbelt Use: always Sunscreen Use: No Assistive Devices: Denture - Upper and Denture - Lower Physical Exam Physical Exam: Gen.: No acute distress. Alert and oriented. HEENT: Anicteric sclera. Neck: No JVD. No bruits. Normal carotid upstrokes bilaterally. Cardiac: No ventricular heave. Regular. Normal S1-S2. No murmurs, rubs, or gallops. Pulmonary: Clear to auscultation bilaterally without wheezes, rales, or rhonchi. Abdomen: Soft, nontender, nondistended, with normoactive bowel sounds. No bruits noted. Extremities: 2+ radial pulses bilaterally. 2+ posterior tibialis pulses bilaterally. 1+ bilateral lower extremity edema. No cyanosis. Psychiatric: Affect appears appropriate. Results & Data Vital Signs (Past 12 Hours) Vital Signs Temp Pulse Pulse Resp BP BP Pulse Ox 11/07/23 16:45 36.5 C 70 18 125/66 97 11/07/23 15:55 36.5 C 67 18 141/83 H 98 11/07/23 14:55 36.5 C 67 18 124/67 97 11/07/23 14:33 129 H 11/07/23 14:25 36.5 C 100 H 102/55 L 98 11/07/23 14:10 36.5 C 125 H 16 109/78 99 11/07/23 14:03 36.4 C L 126 H 18 119/78 99 11/07/23 12:27 130 H 112/77 98 11/07/23 12:21 131 H 11/07/23 11:54 36.3 C L 131 H 22 103/63 97 11/07/23 11:25 131 H 22 91/65 L 94 11/07/23 11:22 132 H 91/65 L 11/07/23 11:10 133 H 27 H 94/63 L 94 11/07/23 10:55 36.1 C L 132 H 24 87/64 L 97 11/07/23 10:45 132 H 22 96/67 L 95 11/07/23 10:35 132 H 23 90/58 L 97 11/07/23 10:25 132 H 20 93/63 L 95 11/07/23 10:15 133 H 17 107/69 96 11/07/23 10:05 133 H 23 93/70 L 95 11/07/23 09:55 134 H 25 H 94/65 L 95 11/07/23 09:45 136 H 22 92/70 L 95 11/07/23 09:35 136 H 19 104/74 97 11/07/23 09:25 137 H 29 H 124/88 100 11/07/23 09:18 36.1 C L 136 H 20 132/90 100 11/07/23 07:33 37 C 16 134/79 99 O2 Del Method O2 Flow Rate 11/07/23 16:45 11/07/23 15:55 11/07/23 14:55 11/07/23 14:33 11/07/23 14:25 11/07/23 14:10 11/07/23 14:03 11/07/23 12:27 Room Air 11/07/23 12:21 11/07/23 11:54 Room Air 11/07/23 11:25 Room Air 11/07/23 11:22 11/07/23 11:10 Room Air 11/07/23 10:55 Room Air 11/07/23 10:45 Room Air 11/07/23 10:35 Room Air 11/07/23 10:25 Room Air 11/07/23 10:15 Room Air 11/07/23 10:05 Room Air 11/07/23 09:55 Room Air 11/07/23 09:45 Room Air 11/07/23 09:35 Room Air 11/07/23 09:25 Oxymask 2 11/07/23 09:18 Oxymask 2 11/07/23 07:33 Room Air Laboratory Results Laboratory Results - last 24 hr 11/07/23 11/07/23 10:34 12:02 WBC 9.75 RBC 2.33 L Hgb 7.7 L Hct 23.9 L MCV 102.6 H MCH 33.0 MCHC 32.2 RDW Std Deviation 61.7 H RDW Coeff of Kehinde 16.5 H Plt Count 192 MPV 10.1 Immature Gran % (Auto) 1.0 Neut % (Auto) 92.4 Lymph % (Auto) 2.9 [place] % (Auto) 2.7 Eos % (Auto) 0.7 Baso % (Auto) 0.3 Neut # (Auto) 9.01 H Lymph # (Auto) 0.28 L [place] # (Auto) 0.26 Eos # (Auto) 0.07 Baso # (Auto) 0.03 Immature Gran # (Auto) 0.10 Polychromasia 1+ Anisocytosis Present Sodium 132 L Potassium 4.8 Chloride 104 Carbon Dioxide 21 Anion Gap 7 BUN 27 H Creatinine 1.62 H Est Cr Clr Drug Dosing 29.5 Est GFR ( Amer) 43.3 Est GFR (Non-Af Amer) 37.3 BUN/Creatinine Ratio 16.7 Glucose 125 H Calcium 8.0 L Blood Type A Positive Antibody Screen NEGATIVE Crossmatch See Detail Diagnostic Findings Labs reviewed and notable for: Abnormal renal function (chronic), normal potassium, hyponatremia, normal TSH 1 week ago, chronic anemia. Telemetry personally reviewed: Atrial flutter with rapid ventricular response initially but now rate controlled on diltiazem drip. ECG personally reviewed 11/07/2023 9:53 AM: Atrial flutter with rapid ventricular response 134 bpm. LBBB. Echo 07/20/2023: Reported EF 40 to 45%. Mild AI. Mild MR. Small mobile vegetation on the mitral valve. Mild left atrial dilation. Event monitor 06/27/2023: Predominantly sinus rhythm with average heart rate 72 (50-159). Frequent episodes of A-fib, generally brief. Average heart rate during A-fib approximately 100 bpm. Medications Administered Current Inpatient Medications Acetaminophen (Acetaminophen 325 Mg Tab) 650 mg PO Q4H PRN PRN Reason: pain/fever Stop: 12/07/23 10:46 Acetaminophen (Acetaminophen 325 Mg Tab) 650 mg PO QID PRN PRN Reason: Pain Stop: 12/07/23 12:02 Famotidine (Famotidine 10 Mg Tablet) 10 mg PO BID PRN PRN Reason: Heartburn Stop: 12/07/23 12:09 Sodium Chloride (Nss) 1,000 mls @ 15 mls/hr IV .Q24H [facility] Stop: 11/08/23 05:59 Last Infusion: 11/07/23 08:29 Dose: Infused Sodium Chloride (Nss) 250 mls @ 15 mls/hr IV .[id number] PRN PRN Reason: For Transfusion Duration Stop: 11/07/23 21:51 Diltiazem HCl 125 mg/ Dextrose 125 mls @ 5 mls/hr IV .Q24H [facility]; Protocol Stop: 12/07/23 13:44 Last Admin: 11/07/23 14:20 Dose: 5 mg/hr, 5 mls/hr Magnesium Hydroxide (Magnesium Hydroxide Susp 30 Ml Udc) 30 ml PO Q6H PRN PRN Reason: Constipation Stop: 12/07/23 10:46 Metoprolol Tartrate (Metoprolol Tartrate 25 Mg Tab) 25 mg PO BID [facility] Stop: 12/07/23 20:59 Metoprolol Tartrate (Metoprolol Tartrate 1 Mg/Ml Vial) 5 mg IV Q4 PRN PRN Reason: sbp > 185, dbp >95, HR >120 Stop: 12/07/23 13:16 Ondansetron HCl (Ondansetron Inj 2 Mg/Ml 2 Ml Vial) 4 mg IV Q6H PRN PRN Reason: Nausea Stop: 12/07/23 10:46 Tamsulosin HCl (Tamsulosin Hcl 0.4 Mg Cap) 0.4 mg PO HS [facility]; Protocol Stop: 12/07/23 20:59 PG Care Time/CCT Total # of Minutes Spent Total Time Spent with Patient: Total time spent is greater than 50% in coordination of care (as documented) at patient's floor/unit and/or counseling patient: Coding Level of Care Code 58480 INT INP/OBS CARE 3/75MIN Diagnoses Atrial flutter with rapid ventricular response I48.92 Paroxysmal atrial fibrillation I48.0 Cardiomyopathy, unspecified type I42.9 Cardiomyopathy type: unspecified Anemia D64.9 (3) Cardiomyopathy Cardiomyopathy type: unspecified Qualified Code(s): I42.9 - Cardiomyopathy, unspecified
[2023-11-07] MEDS: METOPROLOL TARTRATE 25 MG TAB PO SCH ×2 (19:05→20:21)
[2023-11-07] MEDS: TAMSULOSIN HCL 0.4 MG CAP PO SCH (20:20)
[2023-11-07] MEDS ORDERED: METOPROLOL TARTRATE 25 MG TAB PO SCH (21:00)
[2023-11-08 06:33] LABS: Hematocrit (blood only) 27.4 % (42.0-52.0); Hemoglobin 9.1 g/dl (14.0-18.0); Mean Corpuscular Hemoglobin 33.5 pg (25.0-34.0); Mean Corpuscular Hgb Conc 33.2 g/dL (32.0-36.0); Mean Corpuscular Volume 100.7 fL (80.0-100.0); Platelet Count 190 K/uL (130-400); RDW Coefficient of Variation 16.6 % (11.5-14.5); RDW Standard Deviation 60.5 fL (36.4-46.3); Red Blood Count 2.72 M/uL (4.70-6.10); White Blood Count 9.55 K/ul (4.8-10.8)
[2023-11-08 06:53] LABS: BUN Creatinine Ratio 15.7 (10-20); Calcium 8.3 mg/dl (8.6-10.3); Creatinine Clr Calc Pharmacy 20.8 ml/min; Est GFR (African American) 28.5 ml/min; Est GFR (Non-African American) 24.6 ml/min; Potassium 5.8 mmol/L (3.5-5.1)
--- NOTE | 2023-11-08 10:49 | Cardiology Progress Note ---
Date of Service November 08, 2023 Assessment & Plan (1) Atrial flutter with rapid ventricular response: (2) Paroxysmal atrial fibrillation: (3) Cardiomyopathy: (4) Anemia: Plan ASSESSMENT/PLAN: 1. Atrial flutter: Completely asymptomatic. Onset difficult to know as cannot locate a preprocedural heart rate in EHR but it looks as though his heart rate was elevated throughout. Has known atrial fibrillation. Spontaneously converted to sinus rhythm last evening. Sinus bradycardia in the 40s today. Metoprolol was held. Will reduce metoprolol to 25 mg twice daily. Has been bradycardic in the outpatient setting and should tolerate mild bradycardia. Long-term, he may require different treatment approach, and this can be determined in the outpatient setting by his property assistant, Dr. Simons. Recommend anticoagulation therapy when safe from a urologic standpoint. Fortunately, atrial flutter ventricular rate was easily controlled with low-dose diltiazem however would favor metoprolol given reduced LV systolic function if atrial flutter returns. 2. Paroxysmal atrial fibrillation: Known issue in the past. On beta-izabel for rate control strategy as per his property assistant, Dr. Simons. Anticoagulation therapy when safe from a urologic standpoint. 3. Cardiomyopathy: Chronic issue. He has declined additional evaluation as per Dr. Simons outpatient notes. Not on ARNI, SGLT2 inhibitor, MRA due to renal function as per outpatient notes. On discharge, recommend metoprolol succinate. He does not appear to be significantly hypervolemic. 4. Anemia: Has had significant hematuria, requiring PRBC transfusions. Will defer to urology if/when anticoagulation therapy can be safely resumed. 5. Acute on chronic renal insufficiency and hyperkalemia: ECG ordered. Communicated with primary hospitalist service, Dr. Murillo. Will defer further treatment/workup to hospitalist service. Appreciate his assistance. 6. Disposition: Cardiology will sign off at this time. Please call on-call associate relations specialist with any further questions or concerns. Close follow-up with his primary associate relations specialist, Dr. Simons, on discharge. Admission and Anticipated Discharge Date Admission Date: November 07, 2023 Subjective Patient seen this morning. His son and grandson presented to the bedside. He denies chest pain, shortness of breath, syncope, near syncope, palpitations. Physical Exam Physical Exam: Gen.: No acute distress. Alert and oriented. HEENT: Anicteric sclera. Neck: No JVD. Cardiac: No ventricular heave. Regular and bradycardic in the 40s. Normal S1- S2. No murmurs, rubs, or gallops. Pulmonary: Clear to auscultation bilaterally without wheezes, rales, or rhonchi. Abdomen: Soft, nontender, nondistended, with normoactive bowel sounds. No bruits noted. Extremities: 2+ radial pulses bilaterally. 2+ posterior tibialis pulses bilaterally. Trace bilateral lower extremity edema. No cyanosis. Psychiatric: Affect appears appropriate. Results & Data Vital Signs (Past 12 Hours) Vital Signs Temp Pulse Pulse Resp BP Pulse Ox O2 Del Method 11/08/23 09:10 47 L 11/08/23 08:05 48 L 11/08/23 07:36 36.3 C L 51 L 18 138/76 99 Room Air 11/08/23 02:33 36.6 C 47 L 18 122/68 96 Room Air Intake & Output 11/06/23 11/07/23 11/08/23 11/09/23 06:59 06:59 06:59 06:59 Intake Total 2333.75 / 2333.75 Output Total 502 / 502 Balance 1831.75 / 1831.75 Weight 174 lb 13.225 oz Laboratory Results Laboratory Results - last 24 hr 11/07/23 11/07/23 11/08/23 10:34 12:02 05:38 WBC 9.75 9.55 RBC 2.33 L 2.72 L Hgb 7.7 L 9.1 L Hct 23.9 L 27.4 L MCV 102.6 H 100.7 H MCH 33.0 33.5 MCHC 32.2 33.2 RDW Std Deviation 61.7 H 60.5 H RDW Coeff of Kehinde 16.5 H 16.6 H Plt Count 192 190 MPV 10.1 10.0 Immature Gran % (Auto) 1.0 Neut % (Auto) 92.4 Lymph % (Auto) 2.9 [place] % (Auto) 2.7 Eos % (Auto) 0.7 Baso % (Auto) 0.3 Neut # (Auto) 9.01 H Lymph # (Auto) 0.28 L [place] # (Auto) 0.26 Eos # (Auto) 0.07 Baso # (Auto) 0.03 Immature Gran # (Auto) 0.10 Polychromasia 1+ Anisocytosis Present Sodium 132 L 127 L Potassium 4.8 5.8 H D Chloride 104 99 Carbon Dioxide 21 21 Anion Gap 7 7 BUN 27 H 36 H Creatinine 1.62 H 2.29 H D Est Cr Clr Drug Dosing 29.5 20.8 Est GFR ( Amer) 43.3 28.5 Est GFR (Non-Af Amer) 37.3 24.6 BUN/Creatinine Ratio 16.7 15.7 Glucose 125 H 128 H Calcium 8.0 L 8.3 L Blood Type A Positive Antibody Screen NEGATIVE Crossmatch See Detail Diagnostic Findings Labs reviewed and notable for improved hemoglobin to 9.1 from 7.7, abnormal renal function, with creatinine increasing from 1.62 up to 2.29 today. Hyp erkalemia. Telemetry personally reviewed: Sinus bradycardia in the 40s after converting from atrial flutter last evening. Medications Administered Current Inpatient Medications Acetaminophen (Acetaminophen 325 Mg Tab) 650 mg PO Q4H PRN PRN Reason: pain/fever Stop: 12/07/23 10:46 Acetaminophen (Acetaminophen 325 Mg Tab) 650 mg PO QID PRN PRN Reason: Pain Stop: 12/07/23 12:02 Famotidine (Famotidine 10 Mg Tablet) 10 mg PO BID PRN PRN Reason: Heartburn Stop: 12/07/23 12:09 Magnesium Hydroxide (Magnesium Hydroxide Susp 30 Ml Udc) 30 ml PO Q6H PRN PRN Reason: Constipation Stop: 12/07/23 10:46 Metoprolol Tartrate (Metoprolol Tartrate 1 Mg/Ml Vial) 5 mg IV Q4 PRN PRN Reason: sbp > 185, dbp >95, HR >120 Stop: 12/07/23 13:16 Metoprolol Tartrate (Metoprolol Tartrate 25 Mg Tab) 37.5 mg PO BID [facility] Stop: 12/07/23 20:59 Last Admin: 11/08/23 09:10 Dose: Not Given Ondansetron HCl (Ondansetron Inj 2 Mg/Ml 2 Ml Vial) 4 mg IV Q6H PRN PRN Reason: Nausea Stop: 12/07/23 10:46 Tamsulosin HCl (Tamsulosin Hcl 0.4 Mg Cap) 0.4 mg PO HS [facility]; Protocol Stop: 12/07/23 20:59 Last Admin: 11/07/23 20:20 Dose: 0.4 mg PG Care Time/CCT Total # of Minutes Spent Total Time Spent with Patient: Total time spent is greater than 50% in coordination of care (as documented) at patient's floor/unit and/or counseling patient: Coding Level of Care Code 23654 SUB INP/OBS CARE 3/50MIN Diagnoses Atrial flutter with rapid ventricular response I48.92 Paroxysmal atrial fibrillation I48.0 Cardiomyopathy, unspecified type I42.9 Cardiomyopathy type: unspecified Anemia D64.9 (3) Cardiomyopathy Cardiomyopathy type: unspecified Qualified Code(s): I42.9 - Cardiomyopathy, unspecified
--- NOTE | 2023-11-08 11:08 | Hospitalist Progress Note ---
Date of Service November 08, 2023 Assessment & Plan (1) Bladder carcinoma: Plan: bladder outlet obsturction, hematuria, failed prevous attempts at treatment s/p palliative TURP, 11/07/23 urology did discontinue shearer (2) Atrial fibrillation: Plan: IV Lopressor unable to use anticoagulation due to hematuria acute blood loss anemia s/p transfusion history of cardiomyopathy, EF 40-45%, typically takes metoprolol and lisinopril, not typically on ARNI or Diuretic, no sglt2 (3) CKD (chronic kidney disease) stage 3, GFR 30-59 ml/min: Plan: current ottoniel likely due to obstructive uropathy with history of CKD stage 3 hyponatremia and hyperkalemia on labs 11/07 still abnormal at repeat, given 2 doses of 100ml 3% saline and 2 doses of patiromer ( after initial d50 and insulin) repeat labs at 2300 hrs Admission and Anticipated Discharge Date Admission Date: November 07, 2023 Subjective pt awake and alert, did have shearer removed, will do post void residuals to assure good bladder emptying did have hyperkalemia without ecg changes, associated ottoniel, did have d50, insulin and lokelma, also for hyponatremia, fluid restriction and 3% saline son updated at the bedside Physical Exam Physical Exam: awake and alert, did have aflutter convert to nsr with LBBB cardiac is slower rate lungs are clear ext without significant edema Results & Data Results & Data Vital Signs (Past 12 Hours) Vital Signs Temp Pulse Pulse Resp BP Pulse Ox O2 Del Method 11/08/23 09:10 47 L 11/08/23 08:05 48 L 11/08/23 07:36 97.3 F L 51 L 18 138/76 99 Room Air 11/08/23 02:33 97.9 F 47 L 18 122/68 96 Room Air Laboratory Results review electrolytes, ordered repeat in am and this afternoon review urine osm and sodium PG Care Time/CCT Total # of Minutes Spent Total Time Spent with Patient: Total time spent is greater than 50% in coordination of care (as documented) at patient's floor/unit and/or counseling patient: Coding Level of Care Code 78521 SUB INP/OBS CARE 3/50MIN Diagnoses Bladder carcinoma C67.9 Paroxysmal atrial fibrillation I48.0 Atrial fibrillation type: paroxysmal CKD (chronic kidney disease) stage 3, GFR 30-59 ml/min N18.30 (2) Atrial fibrillation Atrial fibrillation type: paroxysmal Qualified Code(s): I48.0 - Paroxysmal atrial fibrillation
--- NOTE | 2023-11-08 11:33 | Urology Progress Note ---
Date of Service November 08, 2023 Assessment & Plan (1) Bladder carcinoma: Plan: 88-year-old male with history of muscle invasive bladder cancer presented for scheduled TURBT with Dr. Soto. Postoperatively he developed tachycardia and was admitted to the hospital medicine service. Patient POD #1 status post TURBT Spontaneously converted to sinus rhythm last evening Subjectively doing well Labs reviewedcreatinine 2.29, Na 127, potassium 5.8, Hgb 9.1 Continue medical management per primary team Chamorro patent and draining with pink to light aquino red urine Discussed voiding trial today versus removal in outpatient clinic He prefers voiding trial todayorder placed for catheter removal, monitor for void Will arrange outpatient urology follow-up Gu will follow peripherally, please contact our service with any additional questions/concerns Admission and Anticipated Discharge Date Admission Date: November 07, 2023 Subjective Patient seen and examined at bedside this morning He is awake and sitting up in bedside chair Reports no issues overnight Denies pain Chamorro intact draining pink to light aquino red urine Denies fever or chills Review of Systems Constitutional: as per Subjective / HPI Genitourinary: + as per Subjective / HPI Physical Exam Constitutional: well developed and well nourished; no acute distress Respiratory: normal respiratory effort; no respiratory distress and no labored breathing Gastrointestinal (Abdomen): Inspection/Auscultation: abdomen normal to inspection Musculoskeletal: Head/Neck/Chest: normocephalic Neurologic: moves all extremities and awake Psychiatric: Orientation: alert and oriented x 3 Genitourinary: Chamorro patent and draining pink to light aquino red urine Results & Data Vital Signs (Past 12 Hours) Vital Signs Temp Pulse Pulse Resp BP Pulse Ox O2 Del Method 11/08/23 11:28 36.4 C L 47 L 18 152/77 H 99 Room Air 11/08/23 09:10 47 L 11/08/23 08:05 48 L 11/08/23 07:36 36.3 C L 51 L 18 138/76 99 Room Air 11/08/23 02:33 36.6 C 47 L 18 122/68 96 Room Air PG Care Time/CCT Total # of Minutes Spent Total Time Spent with Patient: Total time spent is greater than 50% in coordination of care (as documented) at patient's floor/unit and/or counseling patient: Coding Level of Care Code None Diagnoses Bladder carcinoma C67.9
[2023-11-08 11:39] LABS: BUN Creatinine Ratio 15.7 (10-20); Calcium 8.4 mg/dl (8.6-10.3); Creatinine Clr Calc Pharmacy 20.8 ml/min; Est GFR (African American) 28.5 ml/min; Est GFR (Non-African American) 24.6 ml/min; Potassium 5.5 mmol/L (3.5-5.1)
[2023-11-08] MEDS ORDERED: STAT IV/IM STA ×2 (11:45→17:13)
[2023-11-08] MEDS: SODIUM CHLORIDE 3 % 100 ML IV ONE ×2 (12:11→17:26)
[2023-11-08] MEDS: DEXTROSE 50% 50 ML SYRINGE IV ONE (12:12)
[2023-11-08] MEDS: INSULIN HUMAN REGULAR PER UNIT 10 UNITS in SYRINGE 9.9 ML IV ONE (12:12)
[2023-11-08] MEDS: PATIROMER CALCIUM SORBITEX 8.4 GM PACK PO ONE ×2 (12:13→17:50)
[2023-11-08 17:07] LABS: BUN Creatinine Ratio 16.6 (10-20); Creatinine Clr Calc Pharmacy 19.3 ml/min; Est GFR (Non-African American) 22.4 ml/min; Potassium 5.5 mmol/L (3.5-5.1)
[2023-11-08] MEDS: FAMOTIDINE 10 MG TABLET PO PRN (17:50)
[2023-11-08] MEDS: METOPROLOL TARTRATE 25 MG TAB PO SCH (20:07)
[2023-11-08 23:33] LABS: Calcium 8.6 mg/dl (8.6-10.3); Est GFR (Non-African American) 23.3 ml/min; Potassium 5.5 mmol/L (3.5-5.1)
--- NOTE | 2023-11-08 23:52 | Electrocardiogram Report ---
Test Reason : Blood Pressure : / mmHG Vent. Rate : 134 BPM Atrial Rate : 134 BPM P-R Int : 104 ms QRS Dur : 148 ms QT Int : 352 ms P-R-T Axes : 000 -49 145 degrees QTc Int : 525 ms Atrial flutter with 2 to 1 block Left axis deviation Left bundle branch block Abnormal ECG When compared with ECG of 24-OCT-2023 09:54, Atrial flutter has replaced Sinus rhythm Vent. rate has increased BY 85 BPM QRS axis Shifted left Confirmed by Davisdon Horta ([id number]) on 11/08/2023 11:51:41 PM Referred By: Vikram Soto Confirmed By:Davidson Horta
[2023-11-09] MEDS: CALCIUM GLUCONATE 1,000 MG/60 ML BAG IV STA (00:20)
[2023-11-09] MEDS: DEXTROSE 50% 50 ML SYRINGE IV STA (00:20)
[2023-11-09] MEDS: SODIUM ZIRCONIUM CYCLOSILICATE 10 GM PACKET PO STA (00:20)
--- NOTE | 2023-11-09 00:21 | Electrocardiogram Report ---
Test Reason : Blood Pressure : / mmHG Vent. Rate : 045 BPM Atrial Rate : 045 BPM P-R Int : 184 ms QRS Dur : 154 ms QT Int : 516 ms P-R-T Axes : 042 -32 155 degrees QTc Int : 446 ms Sinus bradycardia Left axis deviation Left bundle branch block Abnormal ECG When compared with ECG of 07-NOV-2023 09:53, Sinus bradycardia has replaced Atrial flutter Vent. rate has decreased BY 89 BPM Confirmed by Davidson Horta ([id number]) on 11/09/2023 12:20:53 AM Referred By: Vikram Soto Confirmed By:Davidson Horta
[2023-11-09] MEDS: INSULIN HUMAN REGULAR PER UNIT 10 UNITS in SYRINGE 9.9 ML IV STA (00:24)
--- NOTE | 2023-11-09 00:31 | Electrocardiogram Report ---
Test Reason : Blood Pressure : / mmHG Vent. Rate : 050 BPM Atrial Rate : 050 BPM P-R Int : 170 ms QRS Dur : 164 ms QT Int : 510 ms P-R-T Axes : 011 -33 098 degrees QTc Int : 464 ms Sinus bradycardia Left axis deviation Left bundle branch block Abnormal ECG When compared with ECG of 07-NOV-2023 18:34, No significant change Confirmed by Davidson Horta ([id number]) on 11/09/2023 12:30:43 AM Referred By: Vikram Stoo Confirmed By:Davidson Horta
[2023-11-09 06:29] LABS: BUN Creatinine Ratio 18.6 (10-20); Calcium 8.6 mg/dl (8.6-10.3); Creatinine Clr Calc Pharmacy 21.7 ml/min; Est GFR (African American) 29.9 ml/min; Est GFR (Non-African American) 25.8 ml/min; Magnesium 1.9 mg/dl (1.7-2.4); Potassium 4.8 mmol/L (3.5-5.1)
--- NOTE | 2023-11-09 06:30 | Communication Note ---
Date of Service: November 09, 2023 Alerted by nursing of pt's BMP results from 23:00 showing pt persistently hyperkalemic at 5.5. Pt had already received 2 doses of Valtessa throughout the day and 10u of insulin w/ dextrose. Pt was given another 10u of insulin w/ dextrose, calcium gluconate, and a dose of lokelma. Repeat BMP from AM labs showing improved K to 4.8. Resident Activity Tracking Resident Involvement: Resident Care Provided Care Provided: Adult [facility] Medicine
[2023-11-09 06:32] LABS: Hematocrit (blood only) 28.6 % (42.0-52.0); Hemoglobin 9.5 g/dl (14.0-18.0); Mean Corpuscular Hemoglobin 33.1 pg (25.0-34.0); Mean Corpuscular Hgb Conc 33.2 g/dL (32.0-36.0); Mean Corpuscular Volume 99.7 fL (80.0-100.0); Mean Platelet Volume 10.5 fL (9.4-12.4); Platelet Count 199 K/uL (130-400); RDW Coefficient of Variation 16.7 % (11.5-14.5); Red Blood Count 2.87 M/uL (4.70-6.10); White Blood Count 11.38 K/ul (4.8-10.8)
[2023-11-09] MEDS ORDERED: STAT IV/IM STA (08:48)
[2023-11-09] MEDS: SODIUM CHLORIDE 3 % 100 ML IV ONE (10:03)
[2023-11-09] MEDS: SODIUM CHLORIDE 1 GM TABLET PO SCH (10:03)
--- NOTE | 2023-11-09 12:06 | Discharge Summary ---
Discharge Summary Date of Service November 09, 2023 Principal Dx & Hospital Course #1 = Principal Diagnosis (1) Bladder carcinoma: bladder outlet obstruction, hematuria, failed previous attempts at treatment s/p palliative TURP, 11/07/23 urology did discontinue shearer, pt has been urinating without issues (2) Atrial fibrillation: continue home lopressor unable to use anticoagulation due to hematuria acute blood loss anemia s/p transfusion history of cardiomyopathy, EF 40-45%, typically takes metoprolol and lisinopril, not typically on ARNI or Diuretic, no sglt2 (3) CKD (chronic kidney disease) stage 3, GFR 30-59 ml/min: current ottoniel likely due to obstructive uropathy with history of CKD stage 3, is improving but patient wants to go home, will have oupt labs sent to Dr Sewell hyponatremia and hyperkalemia, hyponatremia resolving but pt wants to leave, no po sodium , hyperkalemia resolved Admission HPI Per Admitting Provider 88 yo male with h/o metastatic bladder cancer, was not be able to tolerate chemo, radiation, developed hematuria, was taken to or today for palliative TURP, has h/o Afib , i suspect he is rapid afib ,he is not anticoagulated due to hematuria , reports taking his meds this morning, poor historian, reports lower abdomen discomfort, will place shearer, IV Lopressor for rapid afib , denies CP, palpitations, SOB Discharge Exam awake and alert, did have aflutter convert to nsr with LBBB cardiac is slower rate lungs are clear ext without significant edema Updated Medication List Medication Instructions Recorded Confirmed Type acetaminophen 325 mg capsule 650 mg PO QID PRN Pain 05/18/23 11/07/23 History (Tylenol) alfuzosin 10 mg tablet,extended 10 mg PO HS 11/02/23 11/07/23 History release 24 hr (Uroxatral) famotidine-Ca carb-mag hydrox 10 1 tab PO BID PRN Heartburn 11/02/23 11/07/23 History mg-800 mg-165 mg chewable tablet (Pepcid Complete) lisinopril 40 mg tablet 40 mg PO QAM 11/02/23 11/07/23 History metoprolol succinate 50 mg 75 mg PO QAM 11/02/23 11/07/23 History tablet,extended release 24 hr vit no.133-ferrous 1 tab PO QAM 11/02/23 11/07/23 History fumarate 28 mg-folic acid 800 mcg tablet () sodium chloride 1,000 mg soluble 1,000 mg PO BID #30 tabs 11/09/23 Rx tablet Hospital Stay Data Consultations 11/07/23 10:32 Consult Internal Medicine Routine 11/07/23 10:46 Consult Cardiology Routine 11/07/23 11:36 Consult Palliative Care Routine Procedures Performed Operation Date: 11/07/23 08:35 Actual Procedures p Transurethral Resection of the Bladder Tumor(Not Applicable) - Vikram Soto MD Pending Results Patient Have Any Pending Studies at Discharge: No Discharge Instructions Given to Patient (Per Discharging Provider) -Take Tylenol as needed for discomfort -You can take additional oxybutynin as needed for Shearer discomfort. This can cause constipation, dry eyes and dry mouth so only take if necessary. -Colace as needed to prevent constipation -You may notice some blood in your urine following the procedure -Call office if you develop fevers above 101 Fahrenheit, worsening pain or your catheter is not draining -You will be called regarding appointment to set up follow Total Time Total Time Spent Total Time Spent (In Minutes): It required greater than 30 minutes to prepare this patient for discharge. Coding Level of Care Code 81898 INP/OBS DISCH >30 MIN Diagnoses Bladder carcinoma C67.9 Paroxysmal atrial fibrillation I48.0 Atrial fibrillation type: paroxysmal CKD (chronic kidney disease) stage 3, GFR 30-59 ml/min N18.30
== END 2023-11-09 12:35 | disposition home or self-care (01) | DRG 669 ==
LOC: ASU 06:44 → SUATTDRO 10:47 → 2S 10:47

== ENCOUNTER 2023-12-26 16:18 | Inpatient (IN) ==
[2023-12-26 17:09] LABS: Basophils # (auto) 0.01 K/uL (0.00-0.20); Basophils % (auto) 0.1 %; Eosinophils # (auto) 0.02 K/uL (0.00-0.50); Eosinophils % (auto) 0.2 %; Hematocrit (blood only) 36.3 % (42.0-52.0); Hemoglobin 12.2 g/dl (14.0-18.0); Immature Granulocytes # (auto) 0.06 K/uL (0.01-0.20); Immature Granulocytes % (auto) 0.6 %; Lymphocytes % (auto) 4.3 %; Mean Corpuscular Hemoglobin 33.3 pg (25.0-34.0); Mean Corpuscular Hgb Conc 33.6 g/dL (32.0-36.0); Mean Corpuscular Volume 99.2 fL (80.0-100.0); Mean Platelet Volume 10.2 fL (9.4-12.4); Monocytes # (auto) 0.45 K/uL (0.11-0.59); Monocytes % (auto) 4.8 %; Neutrophils # (auto) 8.46 K/uL (1.40-6.50); Platelet Count 179 K/uL (130-400); RDW Coefficient of Variation 17.5 % (11.5-14.5); RDW Standard Deviation 63.9 fL (36.4-46.3); Red Blood Count 3.66 M/uL (4.70-6.10)
[2023-12-26] MEDS: SODIUM CHLORIDE 0.9% 500 ML IV SCH (17:09)
[2023-12-26] MEDS: CALCIUM GLUCONATE 1,000 MG/60 ML BAG IV STA ×3 (17:09→22:26)
--- NOTE | 2023-12-26 17:16 | Emergency Department Note ---
History of Present Illness General Chief Complaint: Abnormal Labs/Diagnostic Testing Stated Complaint: ABN LABS, FATIGUE/WEAKNESS Time Seen by Provider: 12/26/23 16:34 History of Present Illness Provider Complaint: + abnormal lab Returns today for: + called because of abnormal lab/test Description of abnormal result: Low-sodium high potassium Context: + called for abnormal lab result Associated symptoms: + malaise and + other (Weakness); no fever, no chills, no chest pain, no shortness of breath, no rash or no nausea Home Medications Medication Instructions Recorded Confirmed Type acetaminophen 325 mg capsule 650 mg PO QID PRN Pain 05/18/23 12/26/23 History (Tylenol) alfuzosin 10 mg tablet,extended 10 mg PO HS 11/02/23 12/26/23 History release 24 hr (Uroxatral) famotidine-Ca carb-mag hydrox 10 1 tab PO BID PRN Heartburn 11/02/23 12/26/23 History mg-800 mg-165 mg chewable tablet (Pepcid Complete) vit no.133-ferrous 1 tab PO QAM 11/02/23 12/26/23 History fumarate 28 mg-folic acid 800 mcg tablet () sodium chloride 1,000 mg soluble 1,000 mg PO BID #30 tabs 11/09/23 12/26/23 Rx tablet metoprolol succinate 50 mg 75 mg (1.5 x 50 mg) PO QAM #135 11/27/23 12/26/23 Rx tablet,extended release 24 hr tabs lisinopril 40 mg tablet See Rx Instructions .Route 12/15/23 12/26/23 Rx .COMPLEX #90 tabs prednisone 10 mg tablet 10 mg PO DIRECTED 12/26/23 12/26/23 History Allergies Allergy/AdvReac Type Severity Reaction Status Date / Time No Known Allergies Allergy Verified 11/21/23 14:24 Past Med/Surg History Problem List (Updated 12/26/23 @ 18:42 by Radhames Pepper MD) Hyperkalemia (Acute) Hyponatremia (Acute) CKD (chronic kidney disease) stage 3, GFR 30-59 ml/min Secondary carcinoma of bone (Chronic) DNR no code (do not resuscitate) Physician orders for life-sustaining treatment (POLST) form indicates patient wish for [id number] status Malnutrition of moderate degree Palliative care by specialist Advanced care planning/counseling discussion Weakness generalized Orthostatic hypotension Recurrent falls Bladder carcinoma Diagnosed on 10/27/22 Hypertension LBBB (left bundle branch block) Anemia (Chronic) Asymptomatic carotid artery stenosis without infarction (Acute) Dyslipidemia (Acute) Prediabetes (Acute) Male erectile disorder of organic origin (Acute) Medical History Paroxysmal atrial fibrillation Atrial flutter with rapid ventricular response Atrial fibrillation Follows with Dr. Simons Taking Eliquis (currently on hold r/t gross hematuria) Cardiomyopathy Hx of transient ischemic attack (TIA) 06/21/23: treated at [facility] emergency room. possibly related to medication changes/chemotherapy and/or radiation treatments at the time. son reports increase in Metoprolol and started on Plavix at the time w/ [place] [facility] [place] never had f/u with neurology. no residual effects. GERD (gastroesophageal reflux disease) Gross hematuria son reports that it has been better since stopping his anticoagulants Secondary carcinoma of bone pt/family unaware (denies any other cancer other than bladder) Generalized weakness Orthostatic hypotension LBBB (left bundle branch block) Bladder carcinoma [place] [facility] [place] chemotherapy & radiation treatments with [facility] early 2023. Hypertension DNR (do not resuscitate) on file as of 07/2023, pt is palliative care Cardiomyopathy Atrial fibrillation Follows with Dr. Simons Taking Eliquis (currently on hold r/t gross hematuria) Chronic anticoagulation currently on hold due to gross hematuria (was taking Plavix and Eliquis) History of COVID-19 03/2021- cold symptoms > resolved Anemia Chronic, baseline hgb 11-13 range per chart review - had labs 11/02/23 awaiting results, had last blood transfusion 10/27/23 Dyslipidemia family denies Prediabetes Per records, patient unaware Carotid artery stenosis 2009 carotid imaging: LICA 50-69%, ROULA 1-49% Hiatal hernia Surgical History Hx of cystoscopy (11/2022) under anesthesia and placement of catheter (no longer in place) at [facility]. History of transurethral resection of bladder tumor (TURBT) (04/2023) [place] [facility] [place] History of esophagogastroduodenoscopy (EGD) History of cataract surgery B/L cataract surgery (Spring 2021) History of colonoscopy History of tooth extraction History of tympanoplasty History of inguinal hernia repair Family History Sister No problems noted. Father Hearing loss Brother Prostate cancer Mother , in her 80s Heart failure Father , in his 80s Natural with unknown cause Brother Cancer Pt unsure of type of cancer Sister Cancer 1 sister of pancreatic cancer 6 sisters but pt uncertain if any had cancer Son Transplant Kidney and liver transplant unrelated to cancer Son No problems noted. Son No problems noted. Other No family history of adverse response to anesthesia Denies family history of Ovarian cancer Myocardial infarction Breast cancer Colorectal cancer Social History Smoking Status: Never smoker Tobacco Type: Cigarettes, Pipe and Cigars Age Started Using Tobacco: 18; Age Quit Using Tobacco: 30; packs per day: 0.5; Second Hand Exposure: No; Do You Dip or Chew Tobacco: Yes (quit "years ago"); Hx Alcohol Use: No Hx Substance Use: No Preferred Language: Bhutanese Communication Ability: Effective Visual Impairment: No Limitations Hearing Ability: Hard of Hearing Title Department Manager Required: No Beliefs That Will Affect Care: None marital status: Current Living Situation: Spouse current occupational status: retired current occupation: used to work at [employer] Feels Safe at Home: Yes Childhood Exposure to Second-Hand Smoke: No Diet: regular caffeine: Yes (tea/coffee) during the past year weight has: remained stable Dental Care, Regularly: No Physical Activity Frequency: Does not Exercise Seatbelt Use: always Sunscreen Use: No Assistive Devices: None Physical Exam 2 Vital Signs: Vital Signs - 24 hr 12/26/23 16:28 12/26/23 16:37 12/26/23 16:37 Temperature 36.7 C Temperature Source Oral Pulse Rate 69 91 H Pulse Rate [Finger ] 94 H Pulse Strength [Fi nger] Normal Respiratory Rate 18 20 20 Respiratory Effort / Characteristics Non-Labored Sponta neous Respiratory Depth Normal Blood Pressure 134/87 Blood Pressure [Ri ght Arm] 128/94 Blood Pressure Kisha n 102 Blood Pressure Kisha n [Right Arm] 105 Pulse Oximetry 99 98 96 Oxygen Delivery Me thod Room Air Room Air Room Air Sepsis Recent Feve r Within 48 Hours No Sepsis New/Unexpla ined Change in Men parris Status No Sepsis Action Take n by Nursing No Action Required 12/26/23 17:48 12/26/23 18:30 Temperature Temperature Source Pulse Rate Pulse Rate [Finger ] 103 H 121 H Pulse Strength [Fi nger] Respiratory Rate 22 22 Respiratory Effort / Characteristics Respiratory Depth Normal Blood Pressure Blood Pressure [Ri ght Arm] 138/102 H 127/97 Blood Pressure Kisha n Blood Pressure Kisha n [Right Arm] 114 107 Pulse Oximetry 94 94 Oxygen Delivery Me thod Room Air Room Air Sepsis Recent Feve r Within 48 Hours Sepsis New/Unexpla ined Change in Men parris Status Sepsis Action Take n by Nursing Physical Exam: Physical Exam GENERAL: oriented to person, place, and time. appears well-developed and well- nourished. HENT: Exam performed. - Head: Normocephalic and atraumatic. EYES: Conjunctivae and EOM are normal. Right eye exhibits no discharge. Left eye exhibits no discharge. No scleral icterus. NECK: Normal range of motion. Neck supple. No JVD present. CV: Normal rate, irregular rhythm, normal heart sounds and intact distal pulses. There is 2+ bilateral lower extremity pitting peripheral edema. Palpable radial pulses bue. PULM/CHEST: Effort normal and breath sounds normal. No respiratory distress. No stridor. no wheezes. no rales. ABD: The abdomen is soft. There is no tenderness. NEURO: Motor and sensation grossly intact. SKIN: Skin is warm and dry. He is not diaphoretic. PSYCH: normal mood and affect. Behavior is normal. Judgment and thought content normal. Course Course 1634: The patient was evaluated in room A12. A complete history and physical exam was performed Cardiac monitoring: An order was placed for continuous cardiac monitoring. The monitor shows a rate of 100 with atrial fibrilation rhythm interpreted by me External medical records reviewed. Patient has sodium 124 and potassium 5.4 with creatinine 1.78 outpatient today. Calcium gluconate 1 g ordered for the patient. Patient will be gently hydrated with normal saline. 1750: Vital signs stable. Potassium 6.1. Sodium 123. Patient will be treated with additional 5 units of insulin and 1 amp of D50. Patient will be admitted to the [facility] team. Administered Medications Sodium Chloride (Nss) 500 mls @ 80 mls/hr IV .[id number] JACINTO Stop: 01/25/24 16:44 Last Admin: 12/26/23 17:09 Dose: 80 mls/hr Documented By: JANN Discontinued Medications Dextrose (Dextrose 50% 50 Ml Syringe) 50 ml IV NOW STA Stop: 12/26/23 17:35 Last Admin: 12/26/23 17:55 Dose: 50 ml Documented By: JANN Calcium Gluconate () 1,000 mg in 60 mls @ 240 mls/hr IV NOW STA Stop: 12/26/23 16:59 Last Infusion: 12/26/23 17:22 Dose: Infused Documented By: Infusion: 12/26/23 17:21 Dose: 0 mls/hr Documented By: Admin: 12/26/23 17:09 Dose: 240 mls/hr Documented By: JANN Insulin Human Regular 5 units/ (Syringe) 9.9 mls @ 3 mls/sec IV ONE STA Stop: 12/26/23 17:35 Last Admin: 12/26/23 17:55 Dose: 3 mls/sec Documented By: JANN Co-signed By: REBECCA Medical Decision Making Medical Records Attestation: I reviewed the patient's medical records. External medical records reviewed. Patient has sodium 124 and potassium 5.4 with creatinine 1.78 outpatient today. Laboratory Data Attestation: I reviewed the patient's lab results. 12/26/23 16:53 12/26/23 16:53 Lab Results 12/26/23 Range/Units 16:53 WBC 9.40 (4.8-10.8) K/ul RBC 3.66 L (4.70-6.10) M/uL Hgb 12.2 L (14.0-18.0) g/dl Hct 36.3 L (42.0-52.0) % MCV 99.2 (80.0-100.0) fL MCH 33.3 (25.0-34.0) pg MCHC 33.6 (32.0-36.0) g/dL RDW Std Deviation 63.9 H (36.4-46.3) fL RDW Coeff of Kehinde 17.5 H (11.5-14.5) % Plt Count 179 (130-400) K/uL MPV 10.2 (9.4-12.4) fL Immature Gran % (Auto) 0.6 % Neut % (Auto) 90.0 % Lymph % (Auto) 4.3 % [place] % (Auto) 4.8 % Eos % (Auto) 0.2 % Baso % (Auto) 0.1 % Neut # (Auto) 8.46 H (1.40-6.50) K/uL Lymph # (Auto) 0.40 L (1.20-3.40) K/uL [place] # (Auto) 0.45 (0.11-0.59) K/uL Eos # (Auto) 0.02 (0.00-0.50) K/uL Baso # (Auto) 0.01 (0.00-0.20) K/uL Immature Gran # (Auto) 0.06 (0.01-0.20) K/uL Sodium 123 L (136-145) mmol/L Potassium 6.1 H* (3.5-5.1) mmol/L Chloride 93 L (98-107) mmol/L Carbon Dioxide 23 (21-32) mmol/L Anion Gap 7 (3-11) BUN 37 H (6-23) mg/dl Creatinine 1.70 H (0.6-1.4) mg/dl Est Cr Clr Drug Dosing 28.1 ml/min Est GFR ( Amer) 40.8 ml/min Est GFR (Non-Af Amer) 35.2 ml/min BUN/Creatinine Ratio 21.8 H (10-20) Glucose 114 H (70-99(Fasting)) mg/dl Calcium 8.7 (8.6-10.3) mg/dl Magnesium 2.3 (1.7-2.4) mg/dl ECG Data Attestation: I personally reviewed and interpreted this ECG as follows: Rate (beats per minute): 101 Rhythm: atrial fibrillation Additional Comments: QRS 162 QTc 518 left bundle branch block present Sgarbossa negative no left ventricular hypertrophy MDM Narrative 1634: The patient was evaluated in room A12. A complete history and physical exam was performed Cardiac monitoring: An order was placed for continuous cardiac monitoring. The monitor shows a rate of 100 with atrial fibrilation rhythm interpreted by me External medical records reviewed. Patient has sodium 124 and potassium 5.4 with creatinine 1.78 outpatient today. Calcium gluconate 1 g ordered for the patient. Patient will be gently hydrated with normal saline. 1750: Vital signs stable. Potassium 6.1. Sodium 123. Patient will be treated with additional 5 units of insulin and 1 amp of D50. Patient will be admitted to the [facility] team. Impression & Plan Hyponatremia, Hyperkalemia Critical Care Time Total Critical Care Time: 46 I have personally spent greater than 46 minutes of critical care time in the direct management of this patient. This includes bedside care, interpretation of diagnostic studies, and testing, discussion with consultants, patient, and family members, and other required patient management activities. This 46 minutes is in excess of all separately billable procedures. Discharge Plan Visit Data Chief Complaint: Abnormal Labs/Diagnostic Testing Stated Complaint: ABN LABS, FATIGUE/WEAKNESS ED Provider: Radhames Pepper Discharge Problem: Hyponatremia, Hyperkalemia Patient Disposition: Admitted As Inpatient Forms Stand Alone Forms: My [facility] Prescriptions Prescriptions: No Action acetaminophen [Tylenol] 325 mg capsule 650 mg PO QID PRN (Reason: Pain) Rx Instructions: OTC metoprolol succinate 50 mg tablet extended release 24 hr 75 mg PO QAM Qty: 135 3RF Rx Instructions: 1.5 tablets daily lisinopril 40 mg tablet See Rx Instructions .ROUTE .COMPLEX Qty: 90 3RF Dose Instruction: TAKE 1 TAB BY MOUTH DAILY Rx Instructions: TAKE 1 TAB BY MOUTH DAILY Pepcid Complete 10-800-165 mg Tablet,Chewable 1 tab PO BID PRN (Reason: Heartburn) Rx Instructions: otc 28-800 mg-mcg Tablet 1 tab PO QAM Rx Instructions: OTC alfuzosin [Uroxatral] 10 mg tablet extended release 24 hr 10 mg PO HS Rx Instructions: administer after the same meal each day sodium chloride 1,000 mg Tablet,Soluble 1,000 mg PO BID Qty: 30 0RF prednisone 10 mg tablet 10 mg PO DIRECTED Rx Instructions: filled 12/12/23 37 day supply Referrals Referrals: Yemi Trotter DO [Primary Care Provider] -
[2023-12-26 17:33] LABS: BUN Creatinine Ratio 21.8 (10-20); Calcium 8.7 mg/dl (8.6-10.3); Creatinine Clr Calc Pharmacy 28.1 ml/min; Est GFR (African American) 40.8 ml/min; Est GFR (Non-African American) 35.2 ml/min; Magnesium 2.3 mg/dl (1.7-2.4); Potassium 6.1 mmol/L (3.5-5.1)
[2023-12-26] MEDS: INSULIN HUMAN REGULAR PER UNIT 5 UNITS in SYRINGE 9.9 ML IV STA (17:55)
[2023-12-26] MEDS: DEXTROSE 50% 50 ML SYRINGE IV STA (17:55)
--- NOTE | 2023-12-26 18:26 | History & Physical Report ---
Date of Service December 26, 2023 Assessment & Plan (1) Hyperkalemia: Plan: - Initial potassium was 5.4 and increased to 6.1 - likely due to little urine production, poor intake, and CKD stage 3 - Peaked T-waves on and LBBB on EKG - Calcium gluconate 1g IV x2 given in ED, - Sodium zirconium cyclosilicate 10 g given in ED - Potassium decreased down to 5.4 - Holding EDIS inhibitor, BP stable - Continue monitoring and treating as necessary - BMP Q4h (2) Hyponatremia: Plan: - On ED arrival patient hyponatremic with sodium: 124 - Patient started on NaCl 500 ml @80mls/hr IV Q6h and 250 ml bolus - Chronic hyponatremia likely in part due to hypovolemia from poor intake - patient on sodium tablet 1000 mg PO BID home medication, will add as needed - gentle fluid and sodium resuscitation - will continue to monitor - BMP Q4h (3) Bladder carcinoma: Plan: - patient with invasive bladder cancer underwent TURBT 11/06 - patient reports less hematuria since procedure - Patient stopped chemotherapy in July and is currently on immunotherapy - Most recent urinalysis: 2+ protein, 2+ blood, and 2+ leukocyte esterase - Reports burning on urination - ordered urine culture - Patient started on Unasyn 3000 mg in 100 ml IV Q12h (4) CKD (chronic kidney disease) stage 3, GFR 30-59 ml/min: Plan: - Patient's Creatinine: 1.70 on ED admit - Estimated GFR: 31.2 - Currently stable, supplementing with fluids for mild LOLA (5) Malnutrition of moderate degree: Plan: - Patient to be started on low potassium diet on admit - Will continue supplementing with fluids and sodium - Patient reports less intake and weakness - fluids, sodium supplementation, and PO diet (6) Dyspnea on exertion: Plan: - Patient reports new dyspnea on exertion for the past month - Also reports that he may have aspirated on last meal - CXR: right lower lung airspace opacity concerning for aspiration - Patient started on Unsayn 3000 mg in 100 ml IV Q12h History of Present Illness Chief Complaint: Acute on chronic hyperkalemia and hyponatremia, invasive bladder carcinoma, exertional dyspnea, CKD stage 3, and malnutrition Primary Care Provider: Yemi Trotter, DO Red Link is a 88 y/o M with a past medical history of bladder carcinoma - diagnosed 10/27/22, hypertension, LBBB, CKD stage 3, HLD, and a-fib - eliquis held due to hematuria, arriving in the ED after a oncologist appointment that noted hyperkalemia and hyponatremia on labs. The patient reports that he was on chemotherapy for his bladder carcinoma, but stopped in July due to increasing weakness and fatigue. After this the patient has been on regular immunotherapy for his cancer management. The patient reports that in the last few months he was coming in 2-3x per week for blood transfusions due to ongoing anemia. Since the patients bladder surgery on 11/06 he reports that his bleeding has been under control and has not noticed ongoing hematuria. This palliative TURP procedure was completed with Dr. Stoo from urology and subsequently the patient developed tachycardia. The patient stabilized and was discharged without ongoing gross hematuria and was rate controlled for his a. fib with Lopressor. Today the patient denies fevers, chills, chest pain/palpitations/tightness, wheeze, and cough. The patient does endorse some exertional shortness of breath for the past month and some burning on urination. The patient also endorses low appetite and has not been eating or drinking much. Allergies Allergy/AdvReac Type Severity Reaction Status Date / Time No Known Allergies Allergy Verified 11/21/23 14:24 Home Medications Medication Instructions Recorded Confirmed Type acetaminophen 325 mg capsule 650 mg PO QID PRN Pain 05/18/23 12/26/23 History (Tylenol) alfuzosin 10 mg tablet,extended 10 mg PO HS 11/02/23 12/26/23 History release 24 hr (Uroxatral) famotidine-Ca carb-mag hydrox 10 1 tab PO BID PRN Heartburn 11/02/23 12/26/23 History mg-800 mg-165 mg chewable tablet (Pepcid Complete) vit no.133-ferrous 1 tab PO QAM 11/02/23 12/26/23 History fumarate 28 mg-folic acid 800 mcg tablet () sodium chloride 1,000 mg soluble 1,000 mg PO BID #30 tabs 11/09/23 12/26/23 Rx tablet metoprolol succinate 50 mg 75 mg (1.5 x 50 mg) PO QAM #135 11/27/23 12/26/23 Rx tablet,extended release 24 hr tabs lisinopril 40 mg tablet See Rx Instructions .Route 12/15/23 12/26/23 Rx .COMPLEX #90 tabs prednisone 10 mg tablet 10 mg PO DIRECTED 12/26/23 12/26/23 History Past Med/Surg History Problem List (Updated 12/26/23 @ 21:15 by Don Oseguera DO) Dyspnea on exertion Hyperkalemia (Acute) Hyponatremia (Acute) CKD (chronic kidney disease) stage 3, GFR 30-59 ml/min Secondary carcinoma of bone (Chronic) DNR no code (do not resuscitate) Physician orders for life-sustaining treatment (POLST) form indicates patient wish for ae-rfc-[id number] status Malnutrition of moderate degree Palliative care by specialist Advanced care planning/counseling discussion Weakness generalized Orthostatic hypotension Recurrent falls Bladder carcinoma Diagnosed on 10/27/22 Hypertension LBBB (left bundle branch block) Anemia (Chronic) Asymptomatic carotid artery stenosis without infarction (Acute) Dyslipidemia (Acute) Prediabetes (Acute) Male erectile disorder of organic origin (Acute) Medical History Paroxysmal atrial fibrillation Atrial flutter with rapid ventricular response Atrial fibrillation Follows with Dr. Simons Taking Eliquis (currently on hold r/t gross hematuria) Cardiomyopathy Hx of transient ischemic attack (TIA) 06/21/23: treated at [facility] emergency room. possibly related to medication changes/chemotherapy and/or radiation treatments at the time. son reports increase in Metoprolol and started on Plavix at the time w/ follow up with [facility] Cardiology - never had f/u with neurology. no residual effects. GERD (gastroesophageal reflux disease) Gross hematuria son reports that it has been better since stopping his anticoagulants Secondary carcinoma of bone pt/family unaware (denies any other cancer other than bladder) Generalized weakness Orthostatic hypotension LBBB (left bundle branch block) Bladder carcinoma [place] [facility] [place] chemotherapy & radiation treatments with [facility] early 2023. Hypertension DNR (do not resuscitate) on file as of 07/2023, pt is palliative care Cardiomyopathy Atrial fibrillation Follows with Dr. Simons Taking Eliquis (currently on hold r/t gross hematuria) Chronic anticoagulation currently on hold due to gross hematuria (was taking Plavix and Eliquis) History of COVID-19 03/2021- cold symptoms > resolved Anemia Chronic, baseline hgb 11-13 range per chart review - had labs 11/02/23 awaiting results, had last blood transfusion 10/27/23 Dyslipidemia family denies Prediabetes Per records, patient unaware Carotid artery stenosis 2009 carotid imaging: LICA 50-69%, ROULA 1-49% Hiatal hernia Surgical History Hx of cystoscopy (11/2022) under anesthesia and placement of catheter (no longer in place) at [facility]. History of transurethral resection of bladder tumor (TURBT) (04/2023) Dr [place] [facility] History of esophagogastroduodenoscopy (EGD) History of cataract surgery B/L cataract surgery (Spring 2021) History of colonoscopy History of tooth extraction History of tympanoplasty History of inguinal hernia repair Family History Sister No problems noted. Father Hearing loss Brother Prostate cancer Mother , in her 80s Heart failure Father , in his 80s Natural with unknown cause Brother Cancer Pt unsure of type of cancer Sister Cancer 1 sister of pancreatic cancer 6 sisters but pt uncertain if any had cancer Son Transplant Kidney and liver transplant unrelated to cancer Son No problems noted. Son No problems noted. Other No family history of adverse response to anesthesia Denies family history of Ovarian cancer Myocardial infarction Breast cancer Colorectal cancer Social History Smoking Status: Never smoker Tobacco Type: Cigarettes, Pipe and Cigars Age Started Using Tobacco: 18; Age Quit Using Tobacco: 30; packs per day: 0.5; Second Hand Exposure: No; Do You Dip or Chew Tobacco: Yes (quit "years ago"); Hx Alcohol Use: No Hx Substance Use: No Preferred Language: Tamazight Communication Ability: Effective Visual Impairment: No Limitations Hearing Ability: Hard of Hearing Gearman Required: No Beliefs That Will Affect Care: None marital status: Current Living Situation: Spouse current occupational status: retired current occupation: used to work at [employer] Feels Safe at Home: Yes Childhood Exposure to Second-Hand Smoke: No Diet: regular caffeine: Yes (tea/coffee) during the past year weight has: remained stable Dental Care, Regularly: No Physical Activity Frequency: Does not Exercise Seatbelt Use: always Sunscreen Use: No Assistive Devices: None Physical Exam Physical Exam: General: patient resting comfortably, NAD, non-toxic in appearance, answers questions appropriately. Skin: warm, dry, intact HEENT: NC/AT, anicteric sclera, conjunctiva without injection, moist mucus membranes. Heart: +S1/S2, regular, no m/r/g Lungs: equal air entry bilaterally, no rales/rhonchi/wheezes Abd: +BS, soft, NT/ND Ext: warm, no clubbing/cyanosis, 3+ pitting edema with JVD Neuro: nonfocal, speech intact, no facial droop, moving all extremities. AOx3. Results & Data Results & Data Vital Signs (Past 12 Hours) Vital Signs Temp Pulse Pulse Resp BP BP Pulse Ox 12/26/23 17:48 103 H 22 138/102 H 94 12/26/23 16:37 91 H 20 96 12/26/23 16:37 94 H 20 128/94 98 12/26/23 16:28 36.7 C 69 18 134/87 99 O2 Del Method 12/26/23 17:48 Room Air 12/26/23 16:37 Room Air 12/26/23 16:37 Room Air 12/26/23 16:28 Room Air Laboratory Results Laboratory Results WBC 9.40 K/ul (4.8-10.8) 12/26/23 16:53 RBC 3.66 M/uL (4.70-6.10) L 12/26/23 16:53 Hgb 12.2 g/dl (14.0-18.0) L 12/26/23 16:53 Hct 36.3 % (42.0-52.0) L 12/26/23 16:53 MCV 99.2 fL (80.0-100.0) 12/26/23 16:53 MCH 33.3 pg (25.0-34.0) 12/26/23 16:53 MCHC 33.6 g/dL (32.0-36.0) 12/26/23 16:53 RDW Std Deviation 63.9 fL (36.4-46.3) H 12/26/23 16:53 RDW Coeff of Kehinde 17.5 % (11.5-14.5) H 12/26/23 16:53 Plt Count 179 K/uL (130-400) 12/26/23 16:53 MPV 10.2 fL (9.4-12.4) 12/26/23 16:53 Immature Gran % (Auto) 0.6 % 12/26/23 16:53 Neut % (Auto) 90.0 % 12/26/23 16:53 Lymph % (Auto) 4.3 % 12/26/23 16:53 Ralls % (Auto) 4.8 % 12/26/23 16:53 Eos % (Auto) 0.2 % 12/26/23 16:53 Baso % (Auto) 0.1 % 12/26/23 16:53 Neut # (Auto) 8.46 K/uL (1.40-6.50) H 12/26/23 16:53 Lymph # (Auto) 0.40 K/uL (1.20-3.40) L 12/26/23 16:53 Ralls # (Auto) 0.45 K/uL (0.11-0.59) 12/26/23 16:53 Eos # (Auto) 0.02 K/uL (0.00-0.50) 12/26/23 16:53 Baso # (Auto) 0.01 K/uL (0.00-0.20) 12/26/23 16:53 Immature Gran # (Auto) 0.06 K/uL (0.01-0.20) 12/26/23 16:53 Sodium 125 mmol/L (136-145) L 12/26/23 20:00 Potassium 5.4 mmol/L (3.5-5.1) H 12/26/23 20:00 Chloride 95 mmol/L (98-107) L 12/26/23 20:00 Carbon Dioxide 23 mmol/L (21-32) 12/26/23 20:00 Anion Gap 7 (3-11) 12/26/23 20:00 BUN 36 mg/dl (6-23) H 12/26/23 20:00 Creatinine 1.88 mg/dl (0.6-1.4) H 12/26/23 20:00 Est Cr Clr Drug Dosing 25.4 ml/min 12/26/23 20:00 Est GFR ( Amer) 36.1 ml/min 12/26/23 20:00 Est GFR (Non-Af Amer) 31.2 ml/min 12/26/23 20:00 BUN/Creatinine Ratio 19.1 (10-20) 12/26/23 20:00 Glucose 109 mg/dl (70-99(Fasting)) H 12/26/23 20:00 Calcium 8.9 mg/dl (8.6-10.3) 12/26/23 20:00 Magnesium 2.3 mg/dl (1.7-2.4) 12/26/23 16:53 Urine Osmolality 422 mOsm/kg (500-800) L 12/26/23 20:14 Ur Random Sodium 28 mmol/L 12/26/23 20:14 Impressions Chest X-Ray 12/26/23 18:50 XR chest 1V portable CLINICAL HISTORY: hx CHF, borderline hypoxia TECHNIQUE: Single frontal radiograph of the chest was obtained. Comparison: Comparison is made to chest radiograph 10/24/2023 FINDINGS: No lines and tubes are seen. Cardiomegaly is noted. Right lower lung airspace opacity is seen. Pulmonary vascular prominence is seen. No evidence of pleural effusion or pneumothorax. IMPRESSION: 1. Right lower lung airspace opacity. This may represent atelectasis, pneumonia, and/or aspiration. 2. Cardiomegaly is seen with mild pulmonary hypertension. ACT 112: Negative or not required by law. Electronically signed by: Neot Vallejo M.D. 12/26/2023 7:49 PM Medications Administered Sodium Chloride (Nss) 500 mls @ 80 mls/hr IV .[id number] [facility] Stop: 01/25/24 16:44 Last Admin: 12/26/23 17:09 Dose: 80 mls/hr Documented By: JANN Ampicillin Sodium/Sulbactam Sodium (Unasyn) 3,000 mg in 100 mls @ 200 mls/hr IV Q12H [facility]; Protocol Stop: 01/02/24 20:59 Last Admin: 12/26/23 21:16 Dose: 200 mls/hr Documented By: BMK Code Status & VTE Plan Code Status DNR/DNI No Resuscitation SCDs for VTE prophylaxis Supervising Physician Co-Signing Physician Notes Patient seen and examined, chart reviewed, case discussed with Dr. Oseguera and I agree with the assessment and plan as above except as otherwise noted Labs and images reviewed 88-year-old male with a past medical history of bladder carcinoma, TURBT who follows with CCP; atrial flutter, paroxysmal atrial fibrillation with Eliquis held due to recurrent hematuria and anemia, chronic renal insufficiency with hyperkalemia [facility] after his outpatient labs showed acute on chronic hyperkalemia and hyponatremia. Patient reports in the last week he has felt generally tired and has been eating less. He reports he was peeing normally earlier in the week, but is peeing much less than normal now. He reports he is just not very hungry and so he has not been eating or drinking very much. He has been more short of breath going up stairs and walking around, has not had a productive cough. Previously tried to keep up with Gatorade, but has not been drinking much Gatorade or water in the last few days. He denies fever, chills, sweats. Denies chest pain or chest pressure. Denies lightheadedness/dizziness. Denies dysuria, endorses oliguria. Eliquis has been held due to recurrent hematuria and anemia. Right lower lungs coarse, otherwise clear and without wheezing. Hyperkalemia -Labs reviewed at bedside. Sodium 123, potassium 6.1, creatinine 1.7. -EKG reviewed. Compared to prior patient is with peaked T waves and underlying bundle branch block. - In the ER he received insulin/dextrose, and calcium gluconate x 1. Saline was started at maintenance rate without bolus due to hyponatremia. - Reviewed prior urine labs, urine sodium was 14 on 11/2023 inconsistent with SIADH. Given poor p.o. intake, for nutrition suspect that his hyponatremia is at least in part hypovolemic and with solute depletion. I-STAT repeat creatinine 2.0. Baseline creatinine is around 1.72.1. - Due to peak T wave changes on EKG, and limitation of fluids due to underlying chronic hyponatremia 1 dose of petit rumor was held. Repeat calcium gluconate was ordered. Repeat i-STAT 5.1. BMP was ordered every 4 hours. - Patient is on lisinopril 40 mg at baseline, this is discontinued due to recurrent hyperkalemia. - Patient has had some exertional dyspnea and shortness of breath. He has chron ic lower extremity edema and 3+ pitting edema on admission, although lungs are clear. Chest x-ray ordered, he does not have JVD. - Small NSS bolus x1 given, Will slowly replete fluids and trend BMP every 4 hours. If sodium rises greater than 6 will infuse half-normal saline to prevent overly rapid correction while restoring free water. - Otherwise agree with above. Signed out to overnight team for active lab monitoring ?RLL PNA -Patient reports he has had increased shortness of breath when going up stairs without chest pain. Has not had a fever and has not had a productive cough but generally feels more short of breath than usual. He reports that sometimes things go down the wrong pipe, does not think he has aspirated this past week but notes that he has before. Chest x-ray with right lower lobe increased density suspicious for aspiration versus pneumonia. Will continue on Unasyn for empiric coverage of pneumonia Speech consult ordered, patient tolerating meal at bedside without aspiration or difficulty swallowing Resident Activity Tracking Resident Involvement: Resident Care Provided Care Provided: Adult Hospital Medicine (4) CKD (chronic kidney disease) stage 3, GFR 30-59 ml/min Chronic kidney disease stage 3 subtype: unspecified whether 3a or 3b Qualified Code(s): N18.30 - Chronic kidney disease, stage 3 unspecified
[2023-12-26] MEDS: SODIUM CHLORIDE 0.9% 250 ML IV ONE ×2 (19:01→21:18)
[2023-12-26] MEDS: SODIUM ZIRCONIUM CYCLOSILICATE 10 GM PACKET PO ONE (19:39)
--- NOTE | 2023-12-26 19:50 | XRay Report ---
XR chest 1V portable CLINICAL HISTORY: hx CHF, borderline hypoxia TECHNIQUE: Single frontal radiograph of the chest was obtained. Comparison: Comparison is made to chest radiograph 10/24/2023 FINDINGS: No lines and tubes are seen. Cardiomegaly is noted. Right lower lung airspace opacity is seen. Pulmon samina vascular prominence is seen. No evidence of pleural effusion or pneumothorax. IMPRESSION: 1. Right lower lung airspace opacity. This may represent atelectasis, pneumonia, and/or aspiration. 2. Cardiomegaly is seen with mild pulmonary hypertension. ACT 112: Negative or not required by law. Electronically signed by: Neto Vallejo M.D. 12/26/2023 7:49 PM
[2023-12-26 20:29] LABS: BUN Creatinine Ratio 19.1 (10-20); Calcium 8.9 mg/dl (8.6-10.3); Creatinine Clr Calc Pharmacy 25.4 ml/min; Est GFR (African American) 36.1 ml/min; Est GFR (Non-African American) 31.2 ml/min; Potassium 5.4 mmol/L (3.5-5.1)
[2023-12-26] MEDS ORDERED: cefTRIAXone SODIUM 2,000 MG/50 ML BAG IV SCH (20:45)
[2023-12-26] MEDS: AMPICILLIN/SULBACTAM SOD 3,000 MG/100 ML BAG IV SCH (21:16)
[2023-12-26] MEDS ORDERED: POLYETHYLENE (MIRALAX) 17 GM PACK PO PRN (21:56)
[2023-12-26] MEDS ORDERED: ACETAMINOPHEN 325 MG TAB PO PRN (22:00)
[2023-12-26] MEDS: SODIUM CHLORIDE 0.9% 500 ML IV ONE (22:29)
[2023-12-26] MEDS: TAMSULOSIN HCL 0.4 MG CAP PO SCH (22:29)
[2023-12-26] MEDS: predniSONE 10 MG TABLET PO SCH (22:29)
[2023-12-26 22:53] LABS: BUN Creatinine Ratio 19.5 (10-20); Calcium 8.5 mg/dl (8.6-10.3); Creatinine Clr Calc Pharmacy 25.1 ml/min; Est GFR (African American) 35.7 ml/min; Est GFR (Non-African American) 30.8 ml/min; Potassium 5.3 mmol/L (3.5-5.1)
[2023-12-27 03:22] LABS: BUN Creatinine Ratio 20.4 (10-20); Calcium 8.5 mg/dl (8.6-10.3); Creatinine Clr Calc Pharmacy 27.1 ml/min; Est GFR (African American) 35.5 ml/min; Est GFR (Non-African American) 30.6 ml/min; Potassium 5.5 mmol/L (3.5-5.1)
[2023-12-27] MEDS: DEXTROSE 50% 50 ML SYRINGE IV STA (04:38)
[2023-12-27] MEDS: INSULIN HUMAN REGULAR PER UNIT 10 UNITS in SYRINGE 9.9 ML IV ONE (04:38)
[2023-12-27] MEDS: METOPROLOL TARTRATE 1 MG/ML VIAL IV STA ×3 (05:03→17:40)
[2023-12-27] MEDS: SODIUM CHLORIDE 0.9% 500 ML IV ONE (05:13)
[2023-12-27] MEDS: METOPROLOL SUCC 25MG EXT REL TAB PO STA (05:14)
[2023-12-27] MEDS ORDERED: 0.2 MICRON FILTER SET 1 EACH IV STA (05:32)
[2023-12-27] MEDS ORDERED: AMIODARONE IV BOLUS & DRIP IV STA (05:32)
[2023-12-27] MEDS ORDERED: STAT IV Infusion **Titration per Protocol STA (05:32)
[2023-12-27] MEDS: METOPROLOL SUCC 25MG EXT REL TAB PO SCH (05:32)
[2023-12-27] MEDS: AMIODARONE / D5W 150 MG/100 ML BAG IV STA (05:46)
[2023-12-27] MEDS: SODIUM CHLORIDE 0.9% 1,000 ML IV SCH (05:59)
[2023-12-27] MEDS: AMIODARONE / D5W 360 MG/200 ML BAG IV ONE (06:31)
[2023-12-27 06:33] LABS: BUN Creatinine Ratio 20.2 (10-20); Calcium 8.3 mg/dl (8.6-10.3); Creatinine Clr Calc Pharmacy 28.6 ml/min; Est GFR (African American) 36.1 ml/min; Est GFR (Non-African American) 31.2 ml/min; Magnesium 2.1 mg/dl (1.7-2.4)
--- NOTE | 2023-12-27 07:17 | Electrocardiogram Report ---
Test Reason : Blood Pressure : */* mmHG Vent. Rate : 101 BPM Atrial Rate : * BPM P-R Int : * ms QRS Dur : 162 ms QT Int : 400 ms P-R-T Axes : * -44 144 degrees QTcB Int : 518 ms Atrial flutter with variable A-V block Left bundle branch block Abnormal ECG When compared with ECG of 08-Nov-2023 11:36, Atrial flutter has replaced Sinus rhythm Vent. rate has increased by 51 bpm Confirmed by Neil Fong ([id number]) on 12/27/2023 7:17:05 AM Referred By: Stephanie Sewell Confirmed By: Neil Fong
--- NOTE | 2023-12-27 07:17 | Electrocardiogram Report ---
Test Reason : Blood Pressure : */* mmHG Vent. Rate : 96 BPM Atrial Rate : 70 BPM P-R Int : * ms QRS Dur : 158 ms QT Int : 390 ms P-R-T Axes : * -39 142 degrees QTcB Int : 492 ms Atrial flutter with variable A-V block Left axis deviation Left bundle branch block Abnormal ECG When compared with ECG of 26-Dec-2023 16:37, Confirmed by Neil Fong ([id number]) on 12/27/2023 7:17:28 AM Referred By: Stephanie Sewell Confirmed By: Neil Fong
--- NOTE | 2023-12-27 07:18 | Electrocardiogram Report ---
Test Reason : Blood Pressure : */* mmHG Vent. Rate : 133 BPM Atrial Rate : 131 BPM P-R Int : * ms QRS Dur : 152 ms QT Int : 356 ms P-R-T Axes : * -32 119 degrees QTcB Int : 529 ms Atrial flutter Left axis deviation Left bundle branch block Abnormal ECG When compared with ECG of 26-Dec-2023 19:55, HR has increased BY 37 BPM Confirmed by Neil Fong ([id number]) on 12/27/2023 7:17:57 AM Referred By: Stephanie Sewell Confirmed By: Neil Fong
[2023-12-27] MEDS: MULTIVITAMIN TAB PO SCH (08:46)
--- NOTE | 2023-12-27 11:04 | XCELERA ---
[id number]
[2023-12-27] MEDS ORDERED: AMIODARONE / D5W 360 MG/200 ML BAG IV SCH (11:45)
[2023-12-27] MEDS: predniSONE 10 MG TABLET PO SCH (12:50)
[2023-12-27] MEDS: ASPIRIN 81 MG ECTAB PO SCH (12:53)
--- NOTE | 2023-12-27 14:28 | Hospitalist Progress Note ---
Date of Service December 27, 2023 Assessment & Plan (1) Hyperkalemia: Plan: Improved. EDIS inhibitor has been discontinued. Potassium is now down to 5.0 and should normalize. Serial labs (2) Hyponatremia: Plan: Hypoosmolar hyponatremia. Mild. IV fluids have been discontinued. Fluid restriction. Serial labs (3) CKD (chronic kidney disease) stage 3, GFR 30-59 ml/min: Plan: Stable. Monitor intake and output. Serial labs. EDIS inhibitor has been discontinued (4) Steroid dependence: Plan: Prednisone is on his home medication list. He is not able to tell me why he is on prednisone. Nonetheless, it will be continued (5) Atrial flutter: Plan: Rate controlled. He is now off the amiodarone drip. Toprol-XL dosage has been increased. Low-dose aspirin has been started. Due to his advanced age, I do not think he is a candidate for systemic anticoagulation Plan Hopeful discharge to home tomorrow, December 27 Admission and Anticipated Discharge Date Admission Date: December 26, 2023 Subjective Alert and oriented. No distress. and son are at the bedside. Amiodarone infusion has been discontinued. Toprol-XL has been uptitrated. EDIS inhibitor has been discontinued permanently due to hyperkalemia present on admission. Potassium is now down to 5.0. Sodium has improved to 127. Procalcitonin level is negative and Unasyn has been discontinued. No symptoms of right lower lobe pneumonia. Review of Systems 2 Review of Systems: Constitutionalno fever or chills ENTno blurred vision, no double vision, no epistaxis, no sore throat Respiratoryno cough, no wheezing, no shortness of breath Cardiacno palpitations, no chest pain, no syncope Raul nausea, vomiting, diarrhea, melena, hematochezia GUno urinary retention, no urinary incontinence, no dysuria, no hematuria Musculoskeletalno joint pain, no muscle tenderness Skinno bruising, no rashes, no pruritus Neurono isolated weakness, no paresthesia, no weakness Psychno depression, no anxiety Physical Exam 2 Physical Exam: General-alert and oriented x3, no fever, no chills HEENT-head atraumatic and normocephalic, pupils equal and reactive to light, extraocular muscles intact Neck-no lymphadenopathy or thyromegaly, trachea midline Chest-clear to auscultation. No rales, wheezing or rhonchi Cardiac-irregular rhythm. Controlled rate. Normal S1 and S2 Abdomen-normal bowel sounds, no hepatosplenomegaly Extremities-no cyanosis, clubbing, or edema Neuro-cranial nerves II through XII intact, motor and sensory function within normal limits, strength symmetrical, no focal deficits Psych-normal affect, normal mood Results & Data Results & Data Vital Signs (Past 12 Hours) Vital Signs Temp Pulse Pulse Resp BP BP BP 12/27/23 13:11 76 135/70 12/27/23 11:19 36.7 C 97 H 16 144/75 H 12/27/23 08:00 78 12/27/23 07:37 36.3 C L 68 16 122/78 12/27/23 06:10 68 135/87 12/27/23 05:29 142 H 113/77 12/27/23 05:17 141 H 12/27/23 05:13 140 H 118/68 12/27/23 05:03 142 H 150/108 H 12/27/23 03:49 36.8 C 138 H 16 135/100 134/105 H Pulse Ox O2 Del Method 12/27/23 13:11 12/27/23 11:19 97 Room Air 12/27/23 08:00 12/27/23 07:37 97 Room Air 12/27/23 06:10 12/27/23 05:29 12/27/23 05:17 12/27/23 05:13 12/27/23 05:03 12/27/23 03:49 95 Room Air Laboratory Results 12/26/23 16:53 12/27/23 05:52 PG Care Time/CCT Total # of Minutes Spent Total Time Spent with Patient: Total time spent is greater than 50% in coordination of care (as documented) at patient's floor/unit and/or counseling patient: Coding Level of Care Code 47334 SUB INP/OBS CARE 3/50MIN Diagnoses Hyperkalemia E87.5 Hyponatremia E87.1 Stage 3 chronic kidney disease, unspecified whether stage 3a or 3b CKD N18.30 Chronic kidney disease stage 3 subtype: unspecified whether 3a or 3b Steroid dependence F19.20 Atrial flutter I48.92 (3) CKD (chronic kidney disease) stage 3, GFR 30-59 ml/min Chronic kidney disease stage 3 subtype: unspecified whether 3a or 3b Qualified Code(s): N18.30 - Chronic kidney disease, stage 3 unspecified
[2023-12-27] MEDS ORDERED: METOPROLOL TARTRATE 1 MG/ML VIAL IV PRN (17:18)
[2023-12-27 19:15] VITALS: RESP 18
[2023-12-27] MEDS: METOPROLOL TARTRATE 50 MG TAB PO SCH (20:27)
[2023-12-27] MEDS ORDERED: METOPROLOL SUCC 25MG EXT REL TAB PO SCH (21:00)
[2023-12-27] MEDS: ALUMINUM/MAGNESIUM SUSP 30 ML UDC PO PRN (22:39)
[2023-12-27] MEDS: FAMOTIDINE 20MG IV PUSH 20 MG/5 ML SYR IV ONE (22:44)
[2023-12-28 05:27] LABS: BUN Creatinine Ratio 22.5 (10-20); Calcium 8.6 mg/dl (8.6-10.3); Creatinine Clr Calc Pharmacy 28.2 ml/min; Est GFR (African American) 35.5 ml/min; Est GFR (Non-African American) 30.6 ml/min; Potassium 5.5 mmol/L (3.5-5.1)
[2023-12-28] MEDS: CALCIUM GLUCONATE 1,000 MG/60 ML BAG IV STA (06:38)
--- NOTE | 2023-12-28 08:22 | Electrocardiogram Report ---
Test Reason : Blood Pressure : */* mmHG Vent. Rate : 100 BPM Atrial Rate : 227 BPM P-R Int : * ms QRS Dur : 158 ms QT Int : 416 ms P-R-T Axes : 71 -40 127 degrees QTcB Int : 536 ms Atrial flutter with variable A-V block Left axis deviation Left bundle branch block Abnormal ECG When compared with ECG of 27-Dec-2023 04:03, HR has decreased by 33 bpm Otherwise no significant change Confirmed by Neil Fong ([id number]) on 12/28/2023 8:22:31 AM Referred By: Stephanie Sewell Confirmed By: Neil Fong
[2023-12-28] MEDS ORDERED: METOPROLOL SUCC 50MG EXT REL TAB PO SCH (09:00)
[2023-12-28] MEDS: SODIUM ZIRCONIUM CYCLOSILICATE 10 GM PACKET PO ONE (10:52)
[2023-12-28 11:49] VITALS: BP 113/76; PULSE 98; TEMP 98.6; O2SAT 95
--- NOTE | 2023-12-28 12:19 | Discharge Summary ---
Discharge Summary Date of Service December 28, 2023 Principal Dx & Hospital Course #1 = Principal Diagnosis (1) Hyperkalemia: Improved. EDIS inhibitor has been discontinued. Potassium is 5.5 todayDecember 27. 1 dose of Lokelma has been ordered. This should eventually normalize. He was given a prescription for weekly blood testing for the next 3 weeks. (2) Hyponatremia: Hypoosmolar hyponatremia. Mild on admission. Asymptomatic. Sodium 124 todayDecember 27. Outpatient weekly lab testing has been ordered. (3) CKD (chronic kidney disease) stage 3, GFR 30-59 ml/min: Stable. Monitor intake and output. Serial labs. EDIS inhibitor has been discontinued (4) Steroid dependence: Prednisone is on his home medication list. He is not able to tell me why he is on prednisone. Nonetheless, it will be continued (5) Atrial flutter: Rate controlled. He is now off the amiodarone drip. Toprol-XL has been switched to tartrate formulation twice daily. Low-dose aspirin has been started. Due to his advanced age, I do not think he is a candidate for systemic anticoagulation Plan Home todayDecember 27 Admission HPI Per Admitting Provider Red Link is a 88 y/o M with a past medical history of bladder carcinoma - diagnosed 10/27/22, hypertension, LBBB, CKD stage 3, HLD, and a-fib - eliquis held due to hematuria, arriving in the ED after a oncologist appointment that noted hyperkalemia and hyponatremia on labs. The patient reports that he was on chemotherapy for his bladder carcinoma, but stopped in July due to increasing weakness and fatigue. After this the patient has been on regular immunotherapy for his cancer management. The patient reports that in the last few months he was coming in 2-3x per week for blood transfusions due to ongoing anemia. Since the patients bladder surgery on 11/06 he reports that his bleeding has been under control and has not noticed ongoing hematuria. This palliative TURP procedure was completed with Dr. Soto from urology and subsequently the patient developed tachycardia. The patient stabilized and was discharged without ongoing gross hematuria and was rate controlled for his a. fib with Lopressor. Today the patient denies fevers, chills, chest pain/palpitations/tightness, wheeze, and cough. The patient does endorse some exertional shortness of breath for the past month and some burning on urination. The patient also endorses low appetite and has not been eating or drinking much. Discharge Exam General-alert and oriented x3, no fever, no chills HEENT-head atraumatic and normocephalic, pupils equal and reactive to light, extraocular muscles intact Neck-no lymphadenopathy or thyromegaly, trachea midline Chest-clear to auscultation. No rales, wheezing or rhonchi Cardiac-irregular rhythm. Controlled rate. Normal S1 and S2 Abdomen-normal bowel sounds, no hepatosplenomegaly Extremities-no cyanosis, clubbing, or edema Neuro-cranial nerves II through XII intact, motor and sensory function within normal limits, strength symmetrical, no focal deficits Psych-normal affect, normal mood Discharge Plan Discharge Items Patient Disposition: Home - Self-Care Reason For Visit: HYPERKALEMIA/HYPONATREMIA Discharge Diagnosis: Hyperkalemia, hypoosmolar hyponatremia Activity: Resume your previous activity Non-emergency contact: Primary Care Provider and Homeowner Association Manager Call non-emergency contact if: you have any medication questions Follow-up/Referrals: Ymei Trotter, [Primary Care Provider] - Diet: Regular and Heart Healthy Addtl Attending Provider Instructions: Stop lisinopril. Metoprolol is now metoprolol to tartrate 50 mg twice daily. A prescription has been sent to your pharmacy and [facility]. A prescription was given to you for weekly lab tests (nonfasting) once a week for the next 3 weeks. The results of the lab testing will go to your primary care provider Pending Studies at Discharge: No Stand-Alone Forms: My [facility], Smoking Cessation Medications and DC Order Prescriptions: New metoprolol tartrate 50 mg Tablet 50 mg PO BID Qty: 60 0RF aspirin 81 mg Tablet,Delayed Release (Dr/Ec) 81 mg PO QAM Qty: 0 0RF Continued acetaminophen [Tylenol] 325 mg capsule 650 mg PO QID PRN (Reason: Pain) Rx Instructions: OTC Pepcid Complete 10-800-165 mg Tablet,Chewable 1 tab PO BID PRN (Reason: Heartburn) Rx Instructions: otc 28-800 mg-mcg Tablet 1 tab PO QAM Rx Instructions: OTC alfuzosin [Uroxatral] 10 mg tablet extended release 24 hr 10 mg PO HS Rx Instructions: administer after the same meal each day sodium chloride 1,000 mg Tablet,Soluble 1,000 mg PO BID Qty: 30 0RF prednisone 10 mg tablet 10 mg PO DIRECTED Rx Instructions: filled 12/12/23 37 day supply Discontinued metoprolol succinate 50 mg tablet extended release 24 hr 75 mg PO QAM Qty: 135 3RF Rx Instructions: 1.5 tablets daily lisinopril 40 mg tablet See Rx Instructions .ROUTE .COMPLEX Qty: 90 3RF Dose Instruction: TAKE 1 TAB BY MOUTH DAILY Rx Instructions: TAKE 1 TAB BY MOUTH DAILY Discharge Orders: Discharge Order (Routine); Ordered 12/28/23 Ordered By: Ezra Rojas Admission Data Admit Date/Time: 12/26/23 19:45 Attending Provider: Ezra Rojas Admit Provider: Don Oseguera Primary Care Provider: Yemi Trotter Other Providers: Kolby Espinoza Hospital Stay Data Consultations 12/26/23 17:51 ED Decision to Admit Stat Pending Results Patient Have Any Pending Studies at Discharge: No Discharge Instructions Given to Patient (Per Discharging Provider) Stop lisinopril. Metoprolol is now metoprolol to tartrate 50 mg twice daily. A prescription has been sent to your pharmacy and [place]. A prescription was given to you for weekly lab tests (nonfasting) once a week for the next 3 weeks. The results of the lab testing will go to your primary care provider Total Time Total Time Spent Total Time Spent (In Minutes): 45 minutes Coding Level of Care Code 70994 INP/OBS DISCH >30 MIN Diagnoses Hyperkalemia E87.5 Hyponatremia E87.1 Stage 3 chronic kidney disease, unspecified whether stage 3a or 3b CKD N18.30 Chronic kidney disease stage 3 subtype: unspecified whether 3a or 3b Steroid dependence F19.20 Atrial flutter I48.92
== END 2023-12-28 13:23 | disposition home or self-care (01) | DRG 640 ==
LOC: ED 16:18 → SUATTDRO 19:45 → EDINP 19:45 → 4W 21:56